=== PATIENT | male | born 1935 | race Caucasian/White ===

== ENCOUNTER 2023-07-27 09:53 | Observation (INO) ==
--- NOTE | 2023-07-27 10:38 | Emergency Department Note ---
History of Present Illness General Chief complaint: Fall Time Seen by Provider: 07/27/23 10:15 History of Present Illness 87-year-old male who presents to the emergency department via EMS for evaluation s/p fall. Patient states he was walking down the stairs in the basement when his lights turned off and he missed the last step causing him to fall. He denies hitting his head or LOC. He is not on any blood thinners. He states the majority of impact was onto his left side and he notes pain in the left shou lder. He also has some bruising to the right elbow. He states he was unable to get up on his own and had to have EMS help him. Incident occurred approximately 4 hours ago he denies feeling dizzy or lightheaded prior to his fall. He notes significant pain in the left shoulder with any movement. He states he is unable to lift the arm above his head. He denies experiencing any headaches, dizzin ess/lightheadedness, nausea/vomiting, visual changes, memory loss or confusion. Denies neck or back pain, chest pain, shortness of breath, abdominal pain. No pain in his lower extremities. He has not ambulated yet. Patient reports living with his and can usually get around without any complications. Home Medications Medication Instructions Recorded Confirmed Type diphenhydramine HCl 25 mg capsule 1 - 2 cap PO Q4 PRN Allergy 08/19/15 07/27/23 History (Benadryl) Symptoms ##0 fluticasone 250 mcg-salmeterol 50 1 inh inhalation BID 07/27/23 07/27/23 History mcg/dose blistr powdr for inhalation triamcinolone acetonide 0.1 % 1 applic topical BID 07/27/23 07/27/23 History topical ointment Allergies Allergy/AdvReac Type Severity Reaction Status Date / Time HAY FEVER Allergy Unknown Unknown Uncoded 07/27/23 13:29 Past Med/Surg History Social History (System 07/27/23 @ 12:12 by Serina Huitron) Smoking Status: Former smoker Preferred Language: Faroese Feels Safe at Home: Yes Physical Exam Vital Signs Vital Signs - 24 hr 07/27/23 09:45 Temperature 36.6 C Temperature Source Temporal Artery Scan Respiratory Rate 18 Blood Pressure 143/89 H Blood Pressure Mean 107 Pulse Oximetry 97 Oxygen Delivery Method Room Air Sepsis Recent Fever Within 48 Hours No Sepsis New/Unexplained Change in Mental Status N/A Sepsis Action Taken by Nursing No Action Required Constitutional: alert and oriented x3. no acute distress. nontoxic HEENT: normocephalic, atraumatic. No facial trauma. No scalp tenderness or hematoma. Normal conjunctiva.PERRLA. EOM's grossly intact. No florence signs or raccoon eyes. No blood within the ear canals. TMs pearly montemayor without effusion. Pharynx pink without exudate. Tonsils nonenlarged. Mucus membranes moist Neck: neck is supple, nontender. Midline C-spine nontender Respiratory: lungs are clear to auscultation without wheezes, rhonchi, or rales bilaterally. equal chest rise. normal respiratory effort, no accessory muscle use. No chest wall or rib tenderness Cardiovascular: normal heart sounds without murmur. regular rate and rhythm. GI: abdomen is soft, nontender. No palpable masses. No rebound tenderness or guarding. No CVA tenderness MSK: Tenderness over the left shoulder/humerus with limited ROM. Ecchymosis surrounding the right elbow. Full range of motion of the right upper extremity. Hips and lower extremities nontender to palpation. Peripheral vascular: Upper and lower extremities warm and well perfused with palpable pulses. Neuro: without focal neuro deficits. GCS 15. Answers questions appropriately, follows commands. CNII-XII intact. Speech clear, tongue midline, without facial droop. Strength equal throughout all for extremities. Psych:appropriate mood and affect. Medical Decision Making Differential Diagnosis Fracture, dislocation, contusion, intra-abdominal, pneumothorax, intrathoracic, intracranial, neurologic, compartment syndrome, rhabdomyolysis, as well as other pathologies. Laboratory Data Attestation: I reviewed the patient's lab results. 07/27/23 14:51 07/27/23 14:51 Lab Results 07/27/23 07/27/23 07/27/23 Range/Units 14:40 14:51 14:51 WBC 9.30 (4.8-10.8) K/ul RBC 4.41 L (4.70-6.10) M/uL Hgb 13.8 L (14.0-18.0) g/dl Hct 40.8 L (42.0-52.0) % MCV 92.5 (80.0-100.0) fL MCH 31.3 (25.0-34.0) pg MCHC 33.8 (32.0-36.0) g/dL RDW Std Deviation 48.1 H (36.4-46.3) fL RDW Coeff of Vini 14.1 (11.5-14.5) % Plt Count 292 (130-400) K/uL MPV 9.8 (9.4-12.4) fL Immature Gran % (Auto) 0.4 % Neut % (Auto) 82.2 % Lymph % (Auto) 8.6 % Nelson % (Auto) 8.2 % Eos % (Auto) 0.2 % Baso % (Auto) 0.4 % Neut # (Auto) 7.64 H (1.40-6.50) K/uL Lymph # (Auto) 0.80 L (1.20-3.40) K/uL Nelson # (Auto) 0.76 H (0.11-0.59) K/uL Eos # (Auto) 0.02 (0.00-0.50) K/uL Baso # (Auto) 0.04 (0.00-0.20) K/uL Immature Gran # (Auto) 0.04 (0.01-0.20) K/uL Sodium 136 (136-145) mmol/L Potassium 4.0 (3.5-5.1) mmol/L Chloride 107 (98-107) mmol/L Carbon Dioxide 23 (21-32) mmol/L Anion Gap 6 (3-11) BUN 15 (6-23) mg/dl Creatinine 1.04 (0.6-1.4) mg/dl Est Cr Clr Drug Dosing Not Reportable Est GFR ( Amer) 75.0 ml/min Est GFR (Non-Af Amer) 64.7 ml/min BUN/Creatinine Ratio 14.4 (10-20) Glucose 130 H (70-99(Fasting)) mg/dl Calcium 8.4 L (8.6-10.3) mg/dl SARS-CoV-2, RNA, NAAT NEGATIVE (NEGATIVE) Imaging Data My Impression: Head CT per my interpretation without acute intracranial hemorrhage or skull fr acture Cervical neck CT per my interpretation without acute fracture or subluxation Right elbow x-ray without evidence of acute fracture or dislocation per my interpretation Left shoulder, humerus, forearm x-ray per my interpretation demonstrates a subtle nondisplaced left humeral head fracture. No other fractures within the left upper extremity Radiologist's Impression: Cervical Spine CT 07/27/23 10:[address] DOSE: 1130.80 mGy.cm HISTORY: fall TECHNIQUE: Multiaxial CT images of the cervical spine were performed and refo rmatted in the sagittal and coronal plane without the use of contrast. A dose lowering technique was utilized adhering to the principles of ALARA. COMPARISON: None. FINDINGS: No fractures. No subluxation. Prevertebral soft tissues and the C1-C2 interval are intact. No pneumothorax. Posterior fusion defect at C1. Straightening of the cervical spine. 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 This results in moderate central canal narro wing at these levels. Moderate facet degenerative changes throughout the majority cervical spine. IMPRESSION: No fractures within the cervical spine. ACT 112: Negative or not required by law. Electronically signed by: Johnny Griffin M.D. 07/27/2023 11:36 AM Forearm X-Ray 07/27/23 10:31 XR forearm LT 2V CLINICAL HISTORY: fall TECHNIQUE: 2 views of the left forearm were obtained. Comparison: None available at the time of this dictation. FINDINGS: There is no evidence of acute fracture or dislocation. Degenerative changes are seen in the joints. No soft tissue abnormality is seen. IMPRESSION: No evidence of acute osseous injury. ACT 112: Negative or not required by law. Electronically signed by: Vikram Stover M.D. 07/27/2023 11:[address] 07/27/23 10:31 CT OF THE HEAD WITHOUT CONTRAST CLINICAL HISTORY: Fall. COMPARISON STUDY: No previous studies for comparison. TECHNIQUE: Helical axial images of the head were obtained without IV contrast. Automated exposure control was utilized for the study. A dose lowering technique was utilized adhering to the principles of ALARA. FINDINGS: No acute intracranial hemorrhage, midline shift or mass effect is present. The ventricular system is unremarkable. White matter hypodensity suggests small vessel disease. The basal cisterns are patent. No extra-axial collections are present. There are no findings to suggest acute dural sinus thrombosis or acute territorial infarct. No significant calvarial abnormalities are present. Visualized portions of the sinuses and mastoid air cells are clear. IMPRESSION: 1. No acute intracranial findings. 2. No acute calvarial fracture. ACT 112: Negative or not required by law. Electronically signed by: Marcin Bowles M.D. 07/27/2023 11:12 AM Humerus X-Ray 07/27/23 10:31 XR humerus LT 2V CLINICAL HISTORY: Left arm pain following fall. COMPARISON: None FINDINGS: There is no acute fracture within the left humerus. No osseous lesion is identified. Alignment of the left shoulder and left elbow is anatomic. There are moderate degenerative changes within the left shoulder. IMPRESSION: No acute fracture within the left humerus. ACT 112: Negative or not required by law. Electronically signed by: Marcin Bowles M.D. 07/27/2023 11:43 AM Elbow X-Ray 07/27/23 10:33 XR elbow RT min 3V routine CLINICAL HISTORY: Right elbow pain following fall. COMPARISON: None FINDINGS: Alignment of the right elbow is anatomic. There is no acute fracture. No evidence for a joint effusion. Minimal olecranon spurring is noted. Irregularity of the medial and lateral condyles is chronic. IMPRESSION: No acute fracture. No evidence for a right elbow joint effusion. ACT 112: Negative or not required by law. Electronically signed by: Marcin Bowles M.D. 07/27/2023 11:44 AM Shoulder X-Ray 07/27/23 11:59 XR shoulder LT min 2V routine CLINICAL HISTORY: fall COMPARISON: Left humerus radiographs performed earlier today. FINDINGS: There is subtle lucency within the inferior aspect of the left femoral head and radial neck suggestive of a acute transverse nondisplaced fracture. No additional fractures are identified. 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 No acute fractures identified within visualized portions of the left-sided ribs. IMPRESSION: Subtle acute nondisplaced transverse fracture of the left humeral head/neck junction. ACT 112: Negative or not required by law. Electronically signed by: Marcin Bowles M.D. 07/27/2023 12:23 PM MDM Narrative 87-year-old male presents to the emergency department via EMS for evaluation of left shoulder pain s/p mechanical fall. Reviewed pertinent visits and past medical history performed. Vital signs in ED stable, afebrile. Patient was seen and evaluated as above. Given mechanism of injury, head and neck CT were performed as well as x-rays of the right elbow and left upper extremity. Head and neck CTs negative for acute findings. Right elbow x-ray unremarkable. Left arm x-rays demonstrate in a acute nondisplaced transverse fracture of the left humeral head. On exam, patient is nontoxic-appearing in no acute distress. He is neurologically intact without focal deficits. GCS 15. Upper extremities are neurovascularly intact. There is no evidence to trauma to the chest wall, abdomen, or lower extremities indicating need for further imaging. He declined need for pain medication while in the ED. Case was discussed with on-call orthopedics, Dr. Milner for the humeral head fracture. He will see patient in consultation tomorrow as inpatient for further management of his fracture. He agreed with arm sling. Patient was reassessed on multiple occasions throughout ED stay. He remained stable with no new concerns. I did touch base with patient's via telephone, Marlene, and updated her on today's visit as well. There is concern with patient being able to perform daily activities as he states he has been having difficulty getting himself up from a sitting to standing position due to general weakness. is not sure if she can safely maneuver patient on her own as well especially with a now broken arm. We discussed possible admission to the hospital for PT/OT evaluation and likely placement. They were agreeable to this. Basic labs and COVID testing were performed pending admission. Labs nonactionable and COVID test negative. Case was discussed with hospitalist, RIO Nguyen who accepted patient to her service for further management and likely rehab placement. Patient was admitted in stable condition. Impression & Plan Fall down steps, Fracture of head of left humerus, Ambulatory dysfunction Discharge Plan Visit Data Chief Complaint: Fall ED Provider: Tristan Pimentel ED Midlevel Provider: Nallely Colón Discharge Problem: Fall down steps, Fracture of head of left humerus, Ambulatory dysfunction Patient Disposition: Admitted As Inpatient Condition: Good Forms Stand Alone Forms: My [facility] [employer] Prescriptions Prescriptions: No Action diphenhydramine HCl [Benadryl] 25 mg Capsule 1 - 2 cap PO Q4 PRN (Reason: Allergy Symptoms) Qty: 0 fluticasone propion-salmeterol 250-50 mcg/dose blister with device 1 inh INHALATION BID triamcinolone acetonide 0.1 % ointment 1 applic TOPICAL BID Rx Instructions: APPLY TOPICALLY TO AFFECTED AREAS ON BODY ONCE OR TWICE DAILY WEDNESDAY THRU . COVER WITH VASELINE Referrals Referrals: PCP,NO [Physician] -
--- NOTE | 2023-07-27 11:13 | CT Scan Report ---
CT OF THE HEAD WITHOUT CONTRAST CLINICAL HISTORY: Fall. COMPARISON STUDY: No previous studies for comparison. TECHNIQUE: Helical axial images of the head were obtained without IV contrast. Automated exposure con trol was utilized for the study. A dose lowering technique was utilized adhering to the principles o f ALARA. FINDINGS: No acute intracranial hemorrhage, midline shift or mass effect is present. The ventricular system is unremarkable. White matter hypodensity suggests small vessel disease. The basal cisterns ar e patent. No extra-axial collections are present. There are no findings to suggest acute dural sinus thrombosis or acute territorial infarct. No significant calvarial abnormalities are present. Visualiz ed portions of the sinuses and mastoid air cells are clear. IMPRESSION: 1. No acute intracranial findings. 2. No acute calvarial fracture. ACT 112: Negative or not required by law. Electronically signed by: Marcin Bowles M.D. 07/27/2023 11:12 AM
--- NOTE | 2023-07-27 11:37 | CT Scan Report ---
CERVICAL SPINE CT CT DOSE: 1130.80 mGy.cm HISTORY: fall TECHNIQUE: Multiaxial CT images of the cervical spine were performed and reformatted in the sagittal and coronal plane without the use of contrast. A dose lowering technique was utilized adhering to th e principles of ALARA. COMPARISON: None. FINDINGS: No fractures. No subluxation. Prevertebral soft tissues and the C1-C2 interval are intact. No pneumothorax. Posterior fusion defect at C1. Straightening of the cervical spine. Mild to moderate degenerative disc disease within the lower cervical spine. There is ossification of the posterior lo ngitudinal ligament at C5 and C6. This results in moderate central canal narrowing at these levels. M oderate facet degenerative changes throughout the majority cervical spine. IMPRESSION: No fractures within the cervical spine. ACT 112: Negative or not required by law. Electronically signed by: Johnny Griffin M.D. 07/27/2023 11:36 AM
--- NOTE | 2023-07-27 11:44 | XRay Report ---
XR humerus LT 2V CLINICAL HISTORY: Left arm pain following fall. COMPARISON: None FINDINGS: There is no acute fracture within the left humerus. No osseous lesion is identified. Align ment of the left shoulder and left elbow is anatomic. There are moderate degenerative changes within the left shoulder. IMPRESSION: No acute fracture within the left humerus. ACT 112: Negative or not required by law. Electronically signed by: Marcin Bowles M.D. 07/27/2023 11:43 AM
--- NOTE | 2023-07-27 11:46 | XRay Report ---
XR elbow RT min 3V routine CLINICAL HISTORY: Right elbow pain following fall. COMPARISON: None FINDINGS: Alignment of the right elbow is anatomic. There is no acute fracture. No evidence for a curly int effusion. Minimal olecranon spurring is noted. Irregularity of the medial and lateral condyles is chronic. IMPRESSION: No acute fracture. No evidence for a right elbow joint effusion. ACT 112: Negative or not required by law. Electronically signed by: Marcin Bowles M.D. 07/27/2023 11:44 AM
--- NOTE | 2023-07-27 11:56 | XRay Report ---
XR forearm LT 2V CLINICAL HISTORY: fall TECHNIQUE: 2 views of the left forearm were obtained. Comparison: None available at the time of this dictation. FINDINGS: There is no evidence of acute fracture or dislocation. Degenerative changes are seen in the joints. N o soft tissue abnormality is seen. IMPRESSION: No evidence of acute osseous injury. ACT 112: Negative or not required by law. Electronically signed by: Vikram Stover M.D. 07/27/2023 11:55 AM
--- NOTE | 2023-07-27 12:24 | XRay Report ---
XR shoulder LT min 2V routine CLINICAL HISTORY: fall COMPARISON: Left humerus radiographs performed earlier today. FINDINGS: There is subtle lucency within the inferior aspect of the left femoral head and radial nec k suggestive of a acute transverse nondisplaced fracture. No additional fractures are identified. The re is moderate osteoarthritis of the left acromioclavicular and glenohumeral joints. No acute fractur es identified within visualized portions of the left-sided ribs. IMPRESSION: Subtle acute nondisplaced transverse fracture of the left humeral head/neck junction. ACT 112: Negative or not required by law. Electronically signed by: Marcin Bowles M.D. 07/27/2023 12:23 PM
--- NOTE | 2023-07-27 13:32 | Emergency Department Note ---
ED Visit Note I was consulted by the Advanced Practice Provider, Nallely Colón PA-C. I saw the patient personally and performed a substantive portion of the visit. This includes aspects of the HPI, MDM, diagnostic interpretations, and disposition/plan. .
[2023-07-27 15:11] LABS: Basophils # (auto) 0.04 K/uL (0.00-0.20); Basophils % (auto) 0.4 %; Eosinophils # (auto) 0.02 K/uL (0.00-0.50); Eosinophils % (auto) 0.2 %; Hematocrit (blood only) 40.8 % (42.0-52.0); Hemoglobin 13.8 g/dl (14.0-18.0); Immature Granulocytes # (auto) 0.04 K/uL (0.01-0.20); Immature Granulocytes % (auto) 0.4 %; Lymphocytes % (auto) 8.6 %; Mean Corpuscular Hemoglobin 31.3 pg (25.0-34.0); Mean Corpuscular Hgb Conc 33.8 g/dL (32.0-36.0); Mean Corpuscular Volume 92.5 fL (80.0-100.0); Mean Platelet Volume 9.8 fL (9.4-12.4); Monocytes # (auto) 0.76 K/uL (0.11-0.59); Monocytes % (auto) 8.2 %; Neutrophils # (auto) 7.64 K/uL (1.40-6.50); Neutrophils % (auto) 82.2 %; Platelet Count 292 K/uL (130-400); RDW Coefficient of Variation 14.1 % (11.5-14.5); RDW Standard Deviation 48.1 fL (36.4-46.3); Red Blood Count 4.41 M/uL (4.70-6.10)
[2023-07-27 15:23] LABS: Anion Gap 6 (3-11); BUN Creatinine Ratio 14.4 (10-20); Blood Urea Nitrogen 15 mg/dl (6-23); Calcium 8.4 mg/dl (8.6-10.3); Carbon Dioxide 23 mmol/L (21-32); Chloride 107 mmol/L (98-107); Est GFR (Non-African American) 64.7 ml/min; Glucose 130 mg/dl (70-99(Fasting)); Sodium 136 mmol/L (136-145)
--- NOTE | 2023-07-27 17:08 | History & Physical Report ---
Date of Service July 27, 2023 Assessment & Plan (1) Fracture of head of left humerus: (2) Ambulatory dysfunction: (3) Fall down steps: Plan: Admit to [facility] Patient presenting from home after mechanical fall and left arm pain. In the ED, found to have subtle acute nondisplaced transverse fracture of the left humeral head/neck junction. Labs unremarkable Patient accepted to [facility], initially declined transfer, now willing to go however it is now too late in the day for transfer. Plan on transfer to [facility] tomorrow. Pain control Ortho consult (4) Asthma: Plan: Stable, chronic, no signs of acute exacerbation Continue home inhaler DVT PROPHYLAXIS SQ Lovenox Patient seen in collaboration with Dr. Carrillo. I spent a total of 75 minutes coordinating, documenting, and providing care for this patient excluding time spent in the performance of separately billed services. This included personally reviewing all current laboratories and imaging studies, medication reconciliation, outpatient chart review, and discussion with specialists. History of Present Illness Chief Complaint: Fall, left arm pain Primary Care Provider: Pepito Arevalo MD 87-year-old male with PMH asthma, eczema, and other problems to below who presents to the ED for evaluation after a fall and left arm pain. History is obtained from the patient and review of outpatient PCP records. Patient states that he was going down a couple of steps, the light had turned off, and he slipped falling onto his left side. Patient denies striking his head or loss of consciousness. Denies any preceding chest pain, shortness of breath, lightheadedness, dizziness, diaphoresis. EMS was called and patient was brought to the ED for further evaluation. Patient reports he otherwise has been feeling well recently. States that he feels generally weak at times and has difficulty standing up from the toilet. No other recent illnesses, fevers, chills. He denies abdominal pain, nausea, vomiting, diarrhea. No urinary symptoms. In the ED, patient was found to have subtle acute nondisplaced transverse fracture of the left humeral head/neck junction. Labs unremarkable. Patient was accepted to [facility] however he is declining transfer tonight. Allergies Allergy/AdvReac Type Severity Reaction Status Date / Time HAY FEVER Allergy Unknown Unknown Uncoded 07/27/23 13:29 Home Medications Medication Instructions Recorded Confirmed Type diphenhydramine HCl 25 mg capsule 1 - 2 cap PO Q4 PRN Allergy 08/19/15 07/27/23 History (Benadryl) Symptoms ##0 fluticasone 250 mcg-salmeterol 50 1 inh inhalation BID 07/27/23 07/27/23 History mcg/dose blistr powdr for inhalation triamcinolone acetonide 0.1 % 1 applic topical BID 07/27/23 07/27/23 History topical ointment Past Med/Surg History Medical History Asthma Eczema Surgical History History of cataract surgery Social History (System 07/27/23 @ 12:12 by Serina Huitron) Smoking Status: Former smoker Preferred Language: Kinyarwanda Feels Safe at Home: Yes Review of Systems Review of Systems: ROS per HPI, all other systems reviewed and negative Physical Exam Physical Exam: Please refer to Dr. Carrillo's addendum for physical exam Results & Data Results & Data Vital Signs (Past 12 Hours) Vital Signs Temp Pulse Resp BP BP Pulse Ox O2 Del Method 07/27/23 16:35 92 H 16 109/86 96 Room Air 07/27/23 09:45 36.6 C 18 143/89 H 97 Room Air Laboratory Results Short CBC 07/27/23 Range/Units 14:51 WBC 9.30 (4.8-10.8) K/ul Hgb 13.8 L (14.0-18.0) g/dl Hct 40.8 L (42.0-52.0) % Plt Count 292 (130-400) K/uL BMP 07/27/23 14:51 Sodium 136 Potassium 4.0 Chloride 107 Carbon Dioxide 23 BUN 15 Creatinine 1.04 Glucose 130 H Calcium 8.4 L Diagnostic Findings Cervical Spine CT 07/27/23 10:[address] DOSE: 1130.80 mGy.cm HISTORY: fall TECHNIQUE: Multiaxial CT images of the cervical spine were performed and reformatted in the sagittal and coronal plane without the use of contrast. A dose lowering technique was utilized adhering to the principles of ALARA. COMPARISON: None. FINDINGS: No fractures. No subluxation. Prevertebral soft tissues and the C1-C2 interval are intact. No pneumothorax. Posterior fusion defect at C1. Straightening of the cervical spine. 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 This results in moderate central canal narrowing at these levels. Moderate facet degenerative changes throughout the majority cervical spine. IMPRESSION: No fractures within the cervical spine. ACT 112: Negative or not required by law. Electronically signed by: Johnny Griffin M.D. 07/27/2023 11:36 AM Forearm X-Ray 07/27/23 10:31 XR forearm LT 2V CLINICAL HISTORY: fall TECHNIQUE: 2 views of the left forearm were obtained. Comparison: None available at the time of this dictation. FINDINGS: There is no evidence of acute fracture or dislocation. Degenerative changes are seen in the joints. No soft tissue abnormality is seen. IMPRESSION: No evidence of acute osseous injury. ACT 112: Negative or not required by law. Electronically signed by: Vikram Stover M.D. 07/27/2023 11:[address] 07/27/23 10:31 CT OF THE HEAD WITHOUT CONTRAST CLINICAL HISTORY: Fall. COMPARISON STUDY: No previous studies for comparison. TECHNIQUE: Helical axial images of the head were obtained without IV contrast. Automated exposure control was utilized for the study. A dose lowering technique was utilized adhering to the principles of ALARA. FINDINGS: No acute intracranial hemorrhage, midline shift or mass effect is present. The ventricular system is unremarkable. White matter hypodensity suggests small vessel disease. The basal cisterns are patent. No extra-axial collections are present. There are no findings to suggest acute dural sinus thrombosis or acute territorial infarct. No significant calvarial abnormalities are present. Visualized portions of the sinuses and mastoid air cells are clear. IMPRESSION: 1. No acute intracranial findings. 2. No acute calvarial fracture. ACT 112: Negative or not required by law. Electronically signed by: Marcin Bowles M.D. 07/27/2023 11:12 AM Humerus X-Ray 07/27/23 10:31 XR humerus LT 2V CLINICAL HISTORY: Left arm pain following fall. COMPARISON: None FINDINGS: There is no acute fracture within the left humerus. No osseous lesion is identified. Alignment of the left shoulder and left elbow is anatomic. There are moderate degenerative changes within the left shoulder. IMPRESSION: No acute fracture within the left humerus. ACT 112: Negative or not required by law. Electronically signed by: Marcin Bowles M.D. 07/27/2023 11:43 AM Elbow X-Ray 07/27/23 10:33 XR elbow RT min 3V routine CLINICAL HISTORY: Right elbow pain following fall. COMPARISON: None FINDINGS: Alignment of the right elbow is anatomic. There is no acute fracture. No evidence for a joint effusion. Minimal olecranon spurring is noted. Irregularity of the medial and lateral condyles is chronic. IMPRESSION: No acute fracture. No evidence for a right elbow joint effusion. ACT 112: Negative or not required by law. Electronically signed by: Marcin Bowles M.D. 07/27/2023 11:44 AM Shoulder X-Ray 07/27/23 11:59 XR shoulder LT min 2V routine CLINICAL HISTORY: fall COMPARISON: Left humerus radiographs performed earlier today. FINDINGS: There is subtle lucency within the inferior aspect of the left femoral head and radial neck suggestive of a acute transverse nondisplaced fracture. No additional fractures are identified. 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 No acute fractures identified within visualized portions of the left-sided ribs. IMPRESSION: Subtle acute nondisplaced transverse fracture of the left humeral head/neck junction. ACT 112: Negative or not required by law. Electronically signed by: Marcin Bowles M.D. 07/27/2023 12:23 PM Code Status & VTE Plan VTE Prophylaxis Plan VTE Prophylaxis will be ordered: Yes Supervising Physician Co-Signing Physician Notes Pt is a 87 y/o M with hx of asthma, eczema admitted for fall complicated with L humeral head and neck fracture PE: NAD, well developed Lungs: CTA, no wheezing or crackles Cardiac: normal S1/S2, no murmur Abd: ND, soft, NT MSK: wearing L arm sling, ttp of the L anterior shoulder with decreased ROM, normal ROM of the L wrist and elbow with intact strength Psych: AAOx3, normal affect A/P: Fall complicated with L humeral fracture: -ER team was able to get pt into the [facility] rehab but pt does not want to go to the rehab -CT head and C spine: no acute fracture -will get ortho and PT eval - likely rehab placement tomorrow (if pt agree) - prn pain management Agree with A/P by RIO Nguyen
[2023-07-27] MEDS ORDERED: ACETAMINOPHEN 325 MG TAB PO PRN (18:27)
[2023-07-27] MEDS ORDERED: Patient's HEIGHT &/or WEIGHT Needed SCH (20:00)
[2023-07-27] MEDS ORDERED: FLUTICASONE/VILANTEROL 200/25MCG 14 PUFFS/INHALER INH SCH (21:00)
[2023-07-27] MEDS ORDERED: ENOXAPARIN INJ 40 MG/0.4 ML SYR SQ SCH (22:00)
[2023-07-28] MEDS ORDERED: PROMETHAZINE HCL 6.25 MG in SODIUM CHLORIDE 0.9% 50 ML IV PRN (04:36)
--- NOTE | 2023-07-28 09:02 | Orthopedic Consultation ---
Date of Service July 28, 2023 Assessment & Plan (1) Fracture of head of left humerus: He was educated on this injury. He has a nondisplaced proximal humerus fracture that can be treated nonoperatively. He should continue use of the sling. No shoulder range of motion at this time. He can come out of the sling for elbow range of motion. He is okay to discharge from orthopedic standpoint to [facility] for rehab and should follow up with Dr. Milner in approximately 1 month. He was seen and examined by Dr. Milner today as well. History of Present Illness Reason for Consultation: . Requesting Physician: . Attending Physician: Hari Bravo MD .87 year old left hand dominant patient injured his left shoulder yesterday. He was walking down a flight of 4 stairs at home yesterday when the light bulb went out and he couldn't see, causing him to fall. He complains mostly of left shoulder pain, some right elbow pain/bruising. No other orthopedic complaints. He is awaiting discharge to [facility]. Allergies Allergy/AdvReac Type Severity Reaction Status Date / Time HAY FEVER Allergy Unknown Unknown Uncoded 07/27/23 13:29 Home Medications Medication Instructions Recorded Confirmed Type diphenhydramine HCl 25 mg capsule 1 - 2 cap PO Q4 PRN Allergy 08/19/15 07/27/23 History (Benadryl) Symptoms ##0 fluticasone 250 mcg-salmeterol 50 1 inh inhalation BID 07/27/23 07/27/23 History mcg/dose blistr powdr for inhalation triamcinolone acetonide 0.1 % 1 applic topical BID 07/27/23 07/27/23 History topical ointment Past Med/Surg History Medical History Asthma Eczema Surgical History History of cataract surgery Social History Smoking Status: Never smoker Hx Alcohol Use: No Hx Substance Use: No Preferred Language: Divehi Communication Ability: Effective Amphibian Crewmember Required: No Beliefs That Will Affect Care: None Current Living Situation: Spouse Other Information That Helps Us Care for You: No Feels Safe at Home: Yes Safety Concerns: Feels Safe At This Time Assistive Devices: Denture - Upper and Denture - Lower Review of Systems All systems reviewed & are unremarkable except as noted in HPI & below. Physical Exam . alert and oriented. NAD Right arm: ecchymosis around the elbow and forearm. Good elbow range of motion. No effusion. Left arm: Ecchymosis around the upper arm/shoulder. Tender to palpation at the shoulder. No motion of the shoulder at this time. Able to flex/extend his wrist. NVI. Results & Data Results & Data Laboratory Results . Diagnostic Findings .xrays of the right elbow shows some degenerative/chronic changes but no fracture. Left shoulder xrays show a nondisplaced proximal humerus fracture. PG Care Time/CCT Total # of Minutes Spent Total Time Spent with Patient: Total time spent is greater than 50% in coordination of care (as documented) at patient's floor/unit and/or counseling patient: Coding Level of Care Code 75396 IN/OBS CONSULT LVL 3,45M Diagnoses Fracture of head of left humerus S42.292A
--- NOTE | 2023-07-28 11:55 | Discharge Summary ---
Date of Service July 28, 2023 Admission HPI Per Admitting Provider 87-year-old male with PMH asthma, eczema, and other problems to below who presents to the ED for evaluation after a fall and left arm pain. History is obtained from the patient and review of outpatient PCP records. Patient states that he was going down a couple of steps, the light had turned off, and he slipped falling onto his left side. Patient denies striking his head or loss of consciousness. Denies any preceding chest pain, shortness of breath, lightheadedness, dizziness, diaphoresis. EMS was called and patient was brought to the ED for further evaluation. Patient reports he otherwise has been feeling well recently. States that he feels generally weak at times and has difficulty standing up from the toilet. No other recent illnesses, fevers, chills. He denies abdominal pain, nausea, vomiting, diarrhea. No urinary symptoms. In the ED, patient was found to have subtle acute nondisplaced transverse fracture of the left humeral head/neck junction. Labs unremarkable. [facility] however he is declining transfer tonight. Admission Exam Per Admitting Provider NAD, well developed Lungs: CTA, no wheezing or crackles Cardiac: normal S1/S2, no murmur Abd: ND, soft, NT MSK: wearing L arm sling, ttp of the L anterior shoulder with decreased ROM, normal ROM of the L wrist and elbow with intact strength Psych: AAOx3, normal affect Principal Diagnosis Left humerus fracture Discharge Exam General: elderly M in NAD, well developed Lungs: CTA, no wheezing or crackles Cardiac: normal S1/S2, no murmur Abd: ND, soft, NT MSK: wearing L arm sling, ttp of the L anterior shoulder, normal ROM of the L wrist and elbow with intact strength Psych: AAOx3, normal affect Discharge Data Allergies Allergy/AdvReac Type Severity Reaction Status Date / Time HAY FEVER Allergy Unknown Unknown Uncoded 07/27/23 13:29 Consultations 07/27/23 18:27 Consult Orthopedic Surgery Routine Ordered Studies 07/27/23 10:31 CT head/brain wo con Stat FINDINGS: No acute intracranial hemorrhage, midline shift or mass effect is present. The ventricular system is unremarkable. White matter hypodensity suggests small vessel disease. The basal cisterns are patent. No extra-axial collections are present. There are no findings to suggest acute dural sinus thrombosis or acute territorial infarct. No significant calvarial abnormalities are present. Visualized portions of the sinuses and mastoid air cells are clear. IMPRESSION: 1. No acute intracranial findings. 2. No acute calvarial fracture. CT neck [CT cervical spine wo con] Stat FINDINGS: No fractures. No subluxation. Prevertebral soft tissues and the C1-C2 interval are intact. No pneumothorax. Posterior fusion defect at C1. Straightening of the cervical spine. 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 This results in moderate central canal narrowing at these levels. Moderate facet degenerative changes throughout the majority cervical spine. IMPRESSION: No fractures within the cervical spine. Hospital Course (1) Fracture of head of left humerus: (2) Ambulatory dysfunction: (3) Fall down steps: Patient presenting from home after mechanical fall and left arm pain. In the ED, found to have subtle acute nondisplaced transverse fracture of the left humeral head/neck junction. Labs unremarkable Patient accepted to [facility] Pain control - pt denies any shoulder pain Ortho consulted - nondisplaced proximal humerus fracture that can be treated nonoperatively. He should continue use of the sling. No shoulder range of motion at this time. He can come out of the sling for elbow range of motion. He is okay to discharge from orthopedic standpoint to [facility] for rehab and should follow up with Dr. Milner in approximately 1 month. By CMS guidelines, a determination that the admission or continued stay is not medically necessary has been made by a member of the UR committee and a physician for this hospital stay, therefore a Code 44 will be completed and the Inpatient admission will be changed to outpatient. (4) Asthma: Stable, chronic, no signs of acute exacerbation Continue home inhaler Total Time Total Time Spent Total Time Spent (In Minutes): 40 Discharge Plan Discharge Items Patient Disposition: Transfer Inpatient Rehab Fac Reason For Visit: LEFT HUMERUS FRACTURE Discharge Diagnosis: Left humerus fracture Condition on Discharge: Good Activity: Per Instructions section Non-emergency contact: Primary Care Provider and Surgeon Call non-emergency contact if: you have any medication questions and your symptoms worsen Follow-up/Referrals: Pepito Arevalo MD [Primary Care Provider] - Diet: Regular Addtl Attending Provider Instructions: Follow-up with primary care physician and orthopedic surgeon. You should see primary care physician within 1 week. It is recommended that you follow-up with orthopedic surgeon, Dr. Milner, within 1 month. Sling was provided for you. No shoulder range of motion at this time. You can come out of the sling for elbow range of motion. Pending Studies at Discharge: No Stand-Alone Forms: My [facility] Skilled Items Patient informed of condition?: Yes DNR: No Discharge Level of Care: Acute rehab Communicable Disease: No Discharge Prognosis: Stable Lines: None Urinary Catheter: No Medications and DC Order Prescriptions: New acetaminophen 325 mg Tablet 650 mg PO Q4H PRN (Reason: pain) Qty: 20 0RF Continued diphenhydramine HCl [Benadryl] 25 mg Capsule 1 - 2 cap PO Q4 PRN (Reason: Allergy Symptoms) Qty: 0 fluticasone propion-salmeterol 250-50 mcg/dose blister with device 1 inh INHALATION BID triamcinolone acetonide 0.1 % ointment 1 applic TOPICAL BID Rx Instructions: APPLY TOPICALLY TO AFFECTED AREAS ON BODY ONCE OR TWICE DAILY WEDNESDAY THRU WEDNESDAY. COVER WITH VASELINE Discharge Orders: Discharge Order (Routine); Ordered 07/28/23 Ordered By: Hari Bravo Admission Data Admit Date/Time: 07/27/23 16:19 Attending Provider: Hari Bravo Admit Provider: Heather Carrillo Primary Care Provider: Pepito Arevalo [facility] ; Bear Milner ; Heather Carrillo
--- NOTE | 2023-07-29 19:37 | Communication Note ---
Date of Service: July 28, 2023 Over 44 attestation: The chart of the patient, medications and progress note reviewed. The management was appropriate and was discharged appropriately by the attending physician. By CMS guidelines, a determination that the admission or continued stay is not medically necessary has been made by a member of the UR committee and a physician for this hospital stay, therefore a Code 44 will be completed and the Inpatient admission will be changed to outpatient. Dr. Judi Herrera Member UR Committee
--- OUTSIDE RECORDS SUMMARY | 2023-08-10 05:22 | External Medical Summary | Summary of Care ---
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 Name Role Phone Pepito Arevalo MD Primary Care Provider [phone] Reason for Visit * Reason Comments Re-Check Medication Administration Flu and/or Pne umo Inj Encounter Details Date Type Department Care Team Description 07/11/2020 Office Visit Internal Medicine [address] [id number] Pepito Arevalo MD [address] [place] [id number] Mild persistent asthma without complication*; Need for prophylactic vaccination and inoculation against influenza; Seasonal allergic rhinitis due to pollen Allergies Active Allergy Reactions Severity Noted Date Comments Environmental 09/03/2005 documented as of this encounter (statuses as of 07/11/2020) Medications Medication Sig Dispensed Refills Start Date End Date Status BENADRYL 25 MG PO CAPS 1 or 2 pills by mouth 4 times a day as needed for itching or allergies 50 Cap 1 06/27/2013 Active triamcinolone acetonide (ARISTOCORT) 0.1 % ointment Apply topically to affected area. As directed 4 03/11/2015 Active Cetirizine HCl (ZYRTEC ALLERGY) 10 MG CapsuleIndications :Allergic dermatitis Take 1 Cap by mouth daily. 30 Cap 5 12/23/2018 Active fluticasone-salmet alphonso (ADVAIR DISKUS) 250-50 MCG/DOSE inhalerIndications :Mild persistent asthma without complication Inhale 1 Puff by mouth 2 times a day. Rinse mouth daily. 14 Each 3 07/11/2020 Active fluticasone-salmet alphonso (ADVAIR DISKUS) 250-50 MCG/DOSE inhalerIndications :Mild persistent asthma without complication Inhale 1 Puff by mouth 2 times a day. Rinse mouth daily. 1 Disk Dosing Unit 5 07/11/2019 0 Discontinue d(Refill) documented as of this encounter (statuses as of 07/11/2020) Active Problems Problem Noted Date Mild persistent asthma without complicat ion 02/26/2016 Seasonal allergic rhinitis due to pollen 09/07/2012 ADVANCE DIRECTIVE INFORMATION 09/03/2005 Overview: No, Advance Directive brochure offered , patient declined. Intrinsic eczema documented as of this encounter (statuses as of 07/11/2020) Resolved Problems Problem Noted Date Resolved Date Senile cataract of left eye 09/10/201506/2016 NO KNOWN PROBLEMS 07/05/2009 09/07/2012 documented as of this encounter (statuses as of 07/11/2020) Immunizations Name Administration Dates Next Due Pneumococcal Conjugate Vacc, 13 Valent (Prevnar) 07/09/2016 Pneumococcal Polysaccharide PPV23 (Pneumovax) 09/07/2012 Seasonal Influenza, Quadriva lent, No Preserve, 6 Mons & Above, IM 07/11/2019,07/11/2018 Seasonal Influenza, Quadriva lent, No Preserve, Adjuvanted, 65+ Yrs, IM 07/11/2020 Seasonal Influenza, Quadriva lent, No Preserve, IM 07/09/2017,07/09/2016 Seasonal Influenza, Trivalen t, with Preserve, 3yr & Above, Split 07/11/2015,07/14/2014,07/27/2013,08/02,08/05/2011,08/05/2010,08/08/2009 Varicella Zoster Vaccine (Adult) 10/15/2012 documented as of this encounter Social History Tobacco Use Types Packs/Day Years Used Date Former Smoker Cigarettes 0.5 25 Quit: 11/01 Smokeless Tobacco: Never Used Tobacco Cessation:Counseling Given: No Alcohol Use Drinks/Week oz/Week Comments Yes several martini s a day. Cut way back May 2013 Food Insecurity Answer Date Recorded Within the past 12 months, y ou worried that your food would run out before you got money to buy more. Never true Within the past 12 months, t he food you bought just didn't last and you didn't have money to get more. Never true Sex Assigned at Date Recorded Not on file Job Start Date Occupation Industry Not on file Not on file Not on file Travel History Travel Start Travel End documented as of this encounter Last Filed Vital Signs Vital Sign Reading Time Taken Comments Blood Pressure 130/78 07/11/2020 8:11 AM EDT Pulse 106 07/11/2020 8:11 AM EDT Temperature 37 C (98.6 F) 07/11/2020 8:11 AM EDT Respiratory Rate 16 07/11/2020 8:11 AM EDT Oxygen Saturation 97% 07/11/2020 8:11 AM EDT Inhaled Oxygen Concentration - - Weight 73.4 kg (161 lb 12.8 oz) 07/11/2020 8:11 AM EDT Height 177.8 cm (5' 10") 07/11/2020 8:11 AM EDT Body Mass Index 23.22 07/11/2020 8:11 AM EDT documented in this encounter Progress Notes * Pepito Arevalo MD - 07/11/2020 8:16 AM EDT He gets a lot of secretions in the evening watching TV but it does not help much with that. He feels good otherwise, not interested in labs or the shingles shot. He was coating his deck the other dayand got bruised up. Denies nausea, vomiting, or diarrhea. Denies fevers, chills or sweats. He had lost a little weight but now it is stable. Health Maintenance addressed. Flu shot today. 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 Past Surgical History: Procedure Laterality Date MOHS, 1ST STAGE; FACE, HANDS, FEET, NERVE 05/21/08 BCC face, Dr Neville REMOVAL OF TONSILS, AGE 12+ REMOVE CATARACT, INSERT LENS PROSTH Left 09/24/15 SPIROMETRY B/A BRONCHODILATOR 08/25/13 moderate obstructive airways disease, with improvement after bronchodilator Review of patient's allergies indicates: Allergen Reactions Environmental Social History Socioeconomic History Marital status: Spouse name: Not on file Number of children: 1 Years of education: Not on file Highest education level: Not on file Occupational History Employer: [employer] Social Needs Financial resource strain: Not on file Food insecurity: Worry: Never true Inability: Never true Transportation needs: Medical: Not on file Non-medical: Not on file Tobacco Use Smoking status: Former Smoker Packs/day: 0.50 Years: 25.00 Pack years: 12.50 Types: Cigarettes Last attempt to quit: 11/01/2000 Years since quittin.7 Smokeless tobacco: Never Used Substance and Sexual Activity Alcohol use: Yes Comment: several martinis a day. Cut way back May 2013 Drug use: No Sexual activity: Yes Partners: Female Lifestyle Physical activity: Days per week: Not on file Minutes per session: Not on file Stress: Not on file Relationships Social connections: Talks on phone: Not on file Gets together: Not on file Attends anglican service: Not on file Active member of club or organization: Not on file Attends meetings of clubs or organizations: Not on file Relationship status: Not on file Intimate partner violence: Fear of current or ex partner: Not on file Emotionally abused: Not on file Physically abused: Not on file Forced sexual activity: Not on file Other Topics Concern Not on file Social History Narrative Not on file Vaping/E-Cigarette Use Vaping/E-Cigarette Substances Vaping/E-Cigarette Devices Current Outpatient Medications Medication Sig Dispense Refill fluticasone-salmeterol (ADVAIR DISKUS) 250-50 MCG/DOSE inhaler Inhale 1 Puff by mouth 2 times aday. Rinse mouth daily. 14 Each 3 Cetirizine HCl (ZYRTEC ALLERGY) 10 MG Capsule Take 1 Cap by mouth daily. 30 Cap 5 triamcinolone acetonide (ARISTOCORT) 0.1 % ointment Apply topically to affected area. As directed 4 BENADRYL 25 MG PO CAPS 1 or 2 pills by mouth 4 times a day as needed for itching or allergies 50 Cap 1 O: Blood pressure 130/78, pulse 106, temperature 37 C (98.6 F), temperature source Tympanic, resp. rate 16, height 1.778 m (5' 10"), weight 73.4 kg (161 lb 12.8 oz), SpO2 97 %. General appearance: well developed, well nourished and in no acute distress. Neck is supple withoutadenopathy or thyromegaly. Chest is symmetrical and moves normally. The lungs are clear without wheezes, rales, rhonchi or rubs, and the heart is regular without murmurs or gallops, or ectopy. PMI not displaced. He has a number of bruises on his forearms. A: Mild persistent asthma without complication (Primary) - fluticasone-salmeterol (ADVAIR DISKUS) 250-50 MCG/DOSE inhaler; Inhale 1 Puff by mouth 2 times a day. Rinse mouth daily. Need for prophylactic vaccination and inoculation against influenza - INFLUENZA VACC, QUAD, PF, ADJUVANTED, 65+ YRS, IM Seasonal allergic rhinitis due to pollen Follow Up: Return in about 1 year (around 07/11/2021) for Clinic Visit. | For: Clinic Visit * Rachel Woods LPN - 07/11/2020 8:10 AM EDT PRE - ADMINISTRATION DOCUMENTATION Are you allergic to latex? No Are you experiencing any cold symptoms or fever? No Have you had Guillain-Norcross Syndrome (an illness that causes paralysis) within the last 6 weeks? No Have you had the flu shot in the past? YES Have you ever had a reaction to the flu shot? No Rachel Woods LPN, 07/11/2020 8:10 AM Immunization Administration Documentation Time Out Procedure Performed: Yes Patient Identified (Ask Name/Date of ): Yes Does the patient have a fever greater than 101 degrees today? No Patient allergic to latex? No VFC Stock: No Immunization(s) verified: Yes, Immunization Name: Flu, VIS Sheet(s) given: Yes Verified Side and Site: Yes Verified Shot(s) with Parent(s)/Patient: Yes documented in this encounter Nursing Notes * Rachel Woods LPN - 07/11/2020 8:08 AM EDT Pt here for yearly check up No concerns noted Patient has been verbally educated on the need or importance of Immunizations: shingles Depression Screening: Feel SAD, down, depressed, hopeless, or irritable: No Trouble with SLEEP: falling or staying asleep, sleeping too much: No Lost INTEREST in your job, hobbies, or usual pleasures: No Feel GUILTY, down on yourself or that you've let others down: No Tired or have low ENERGY: No Difficulty CONCENTRATING, remembering or making decisions: No Poor APPETITE, or overeating: No PHYSICAL changes - fidgety, restless or more slowed down than usual: No Ever feel that life isn't worth living, feel like hurting yourself, or SUICIDAL: No documented in this encounter Plan of Treatment Upcoming Encounters Date Type Specialty Care Team Description 07/15/2021 Office Visit Internal Medicine Pepito Arevalo MD [address] [place] [address] [place] [address] Health Maintenance Due Date Last Done Comments DTaP,Tdap,and Td Vaccines (1 - Tdap) 1946 Zoster Vaccines (2 of 3) 12/10/2012 10/15/2012 *DEPRESSION SCREENING,ANNUAL FOR PTS 12 AND OVER 07/14/2019 Influenza Vaccine (FLU shot) (#1) 2020 07/11/2019, 07/11/2018, 07/09/2017, Additional history exists *SPIROMETRY ONCE FOR ASTHMA-ADULT 07/04/2020 DIABETES SCREEN EVERY 3 YRS-AGE 45 AND ABOVE 02/28/2022 02/28/2019, 05/30/2013 Pneumococcal Vaccine: 65+ Years Completed 07/09/2016, 09/07/2012 MENINGOCOCCAL (MENACTRA/MENVEO) Aged Out No longer eligible based on patient's age to complete this topic documented as of this encounter Implants Not on filedocumented as of this encounter Visit Diagnoses Diagnosis Mild persistent asthma without complication- Primary Unspecified asthma Need for prophylactic vaccination and inoculation against influenza Seasonal allergic rhinitis due to pollen documented in this encounter Advance Directives Documents on File Type Date Recorded 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
--- OUTSIDE RECORDS SUMMARY | 2023-08-10 05:22 | External Medical Summary | Summary of Care ---
Author Name Unknown Organization [place] [address] Care Team Providers Care Physics Teacher Name Role Phone Pepito Arevalo MD Primary Care Provider [phone] Reason for Visit * Reason Comments Health Maintenance Encounter Details Date Type Department Care Team Description 07/15/2020 Telephone Internal Medicine [address] [address] Pepito Arevalo MD [address] [place] [address] [place] [address] Health Maintenance Allergies Active Allergy Reactions Severity Noted Date Comments Environmental 09/03/2005 documented as of this encounter (statuses as of 07/15/2020) Medications Medication Sig Dispensed Refills Start Date End Date Status BENADRYL 25 MG PO CAPS 1 or 2 pills by mouth 4 times a day as needed for itching or allergies 50 Cap 1 06/27/2013 Active triamcinolone acetonide (ARISTOCORT) 0.1 % ointment Apply topically to affected area. As directed 4 03/11/2015 Active Cetirizine HCl (ZYRTEC ALLERGY) 10 MG CapsuleIndications:All ergic dermatitis Take 1 Cap by mouth daily. 30 Cap 5 12/23/2018 Active fluticasone-salmeterol (ADVAIR DISKUS) 250-50 MCG/DOSE inhalerIndications:Mil d persistent asthma without complication Inhale 1 Puff by mouth 2 times a day. Rinse mouth daily. 14 Each 3 07/11/2020 Active documented as of this encounter (statuses as of 07/15/2020) Active Problems Problem Noted Date Mild persistent asthma without complicat ion 02/26/2016 Seasonal allergic rhinitis due to pollen 09/07/2012 ADVANCE DIRECTIVE INFORMATION 09/03/2005 Overview: No, Advance Directive brochure offered , patient declined. Intrinsic eczema documented as of this encounter (statuses as of 07/15/2020) Resolved Problems Problem Noted Date Resolved Date Senile cataract of left eye 09/10/2015 09/0 06/2016 NO KNOWN PROBLEMS 07/05/2009 09/07/2012 documented as of this encounter (statuses as of 07/15/2020) Immunizations Name Administration Dates Next Due Pneumococcal [...] 26 Quit: 11/01 Smokeless Tobacco: Never Used Alcohol Use Drinks/Week oz/Week Comments Yes several [...] Travel End documented as of this encounter Miscellaneous Notes * Telephone Encounter - Radha May LPN - 07/15/2020 3:04 PM EDT Patient contacted for Care Gaps Comprehensive Care Outreach. Last Office/Telemedicine Visit: 07/11/2020 Next Office Visit: 07/15/2021 Scheduled Provider(s): Pepito Arevalo MD Health Maintenance Topic Date Due DTaP,Tdap,and Td Vaccines (1 - Tdap) 1946 Zoster Vaccines (2 of 3) 12/10/2012 Outreach action taken: AWV Contacted: Left message. with to have pt return call documented in this encounter Plan of Treatment Upcoming Encounters Date Type Specialty Care Team Description 07/15/2021 Office Visit Internal Medicine Pepito Arevalo MD [address] [place] [address] [place] [address] Health Maintenance Due Date Last Done Comments DTaP,Tdap,and Td Vaccines (1 - Tdap) 1946 Zoster Vaccines (2 of 3) 12/10/2012 10/15/2012 DIABETES SCREEN EVERY 3 YRS-AGE 45 AND ABOVE 02/28/2022 02/28/2019, 05/30/2013 Pneumococcal Vaccine: 65+ Years Completed 07/09/2016, 09/07/2012 Influenza Vaccine (FLU shot) Completed 08/2020, 07/11/2019, 07/11/2018, Additional history exists MENINGOCOCCAL (MENACTRA/MENVEO) Aged Out No longer eligible based on patient's age to complete this topic documented as of this encounter Implants Not on filedocumented as of this encounter Advance Directives Documents on File Type Date Recorded 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
--- OUTSIDE RECORDS SUMMARY | 2023-08-10 05:22 | External Medical Summary | Summary of Care ---
Author Name Unknown Organization [place] [address] Care Team Providers Care Contact Finger Assembler Name Role Phone Pepito Arevalo MD Primary Care Provider [phone] Reason for Visit * Reason Onset Date Comments Medication Administration 07/16/2022 Flu an d/or Pneumo Inj Encounter Details Date Type Department Care Team Description 07/16/2022 Office Visit [address] [address] Pepito Arevalo MD [address] [place] [address] [place] [phone] Mild persistent asthma without complication*; Need for prophylactic vaccination and inoculation against influenza; Seasonal allergic rhinitis due to pollen; Intrinsic eczema Allergies Active Allergy Reactions Severity Noted Date Comments Environmental 09/03/2005 documented as of this encounter (statuses as of 07/16/2022) Medications Medication Sig Dispensed Refills Start Date End Date Status BENADRYL 25 MG PO CAPS 1 or 2 pills by mouth 4 times a day as needed for itching or allergies 50 Cap 1 06/27/2013 Active Cetirizine HCl (ZYRTEC ALLERGY) 10 MG CapsuleIndications :Allergic dermatitis Take 1 Cap by mouth daily. 30 Cap 5 12/23/2018 Active Fluticasone-Salmet alphonso 250-50 MCG/ACT Inhalation Aerosol Powder Breath Activated (Advair Diskus)Indications :Mild persistent asthma without complication Inhale by mouth 1 Puff in the morning AND 1 Puff before bedtime. 180 Each 1 07/16/2022 Active triamcinolone acetonide (ARISTOCORT) 0.1 % ointment Apply topically to affected area. As directed 4 03/11/2015 07/16/2022 Discontinued (Patient preference/d iscontinuati on) Fluticasone-Salmet alphonso 250-50 MCG/ACT Inhalation Aerosol Powder Breath Activated (Advair Diskus) Inhale by mouth 1 Puff in the morning AND 1 Puff before bedtime. 180 Each 1 04/30/2022 07/16/2022 Discontinued (Refill) documented as of this encounter (statuses as of 07/16/2022) Active Problems Problem Noted Date Mild persistent asthma without complicat ion 02/26/2016 Seasonal allergic rhinitis due to pollen 09/07/2012 ADVANCE DIRECTIVE INFORMATION 09/03/2005 Overview: No, Advance Directive brochure offered , patient declined. Intrinsic eczema documented as of this encounter (statuses as of 07/16/2022) Resolved Problems Problem Noted Date Resolved Date Senile cataract of left eye 09/10/201506/2016 NO KNOWN PROBLEMS 07/05/2009 09/07/2012 documented as of this encounter (statuses as of 07/16/2022) Immunizations Name Administration Dates Next Due COVID-19 mRNA, LNP-s, No Pre serve, 2-Dose Series (Moderna) 01/07/2021,12/10/2020 Pneumococcal Conjugate Vacc, 13 Valent (Prevnar) 07/09/2016 Pneumococcal Polysaccharide PPV23 (Pneumovax) 09/07/2012 Seasonal Influenza, Quadriva lent Hd (Fluzone Hd) 07/16/2022,07/15/2021 Seasonal Influenza, Quadriva lent, No Preserve, 6 Mons & Above, IM 07/11/2019,07/11/2018 Seasonal Influenza, Quadriva lent, No Preserve, Adjuvanted, 65+ Yrs, IM 07/11/2020 Seasonal Influenza, Quadriva lent, No Preserve, IM 07/09/2017,07/09/2016 Seasonal Influenza, Split, I IV3, With Preserve, Inj 07/11/2015,07/14/2014,07/27/2013,08/02,08/05/2011,08/05/2010,08/08/2009 Varicella Zoster Vaccine (Adult) 10/15/2012 documented as of this encounter Social History Tobacco Use Types Packs/Day Years Used Date Former Smoker Cigarettes 0.5 25 Quit: 11/01 Smokeless Tobacco: Never Used Alcohol Use Standard Drinks/Week Comments Yes 0 (1 standard drink = 0.6 oz pure alcohol) several deliais a day. Cut way back May 2013 Alcohol Habits Answer Date Recorded How often do you have a drin k containing alcohol? Not asked How many drinks containing a lcohol do you have on a typical day when you are drinking? Not asked How often do you have six or more drinks on one occasion? Not asked Comment: several martinis a d ay. Cut way back May 2013 05/30/2013 Food Insecurity Answer Date Recorded Within the past 12 months, y ou worried that your food would run out before you got money to buy more. Never true 07/11/2020 Within the past 12 months, t he food you bought just didn't last and you didn't have money to get more. Never true 07/11/2020 Sex Assigned at Date Recorded Not on file Job Start Date Occupation Industry Not on file Not on file Not on file documented as of this encounter Last Filed Vital Signs Vital Sign Reading Time Taken Comments Blood Pressure 136/66 07/16/2022 8:01 AM EDT Pulse 68 07/16/2022 8:01 AM EDT Temperature 35.9 C (96.7 F) 07/16/2022 8:01 AM ED T Respiratory Rate 18 07/16/2022 8:01 AM EDT Oxygen Saturation - - Inhaled Oxygen Concentration - - Weight 69.1 kg (152 lb 4 oz) 07/16/2022 8:01 AM EDT Height 171.5 cm (5' 7.5") 07/16/2022 8:01 AM EDT Body Mass Index 23.49 07/16/2022 8:01 AM EDT documented in this encounter Progress Notes * Pepito Arevalo MD - 07/16/2022 8:01 AM EDT Vikram has the Advair that he uses for his breathing. He will sometimes use the Zyrtec for allergiesand the cream that he gets in a jar from [employer] if he eczema flares up. He continues to slowly lose weight, but is not complaining of eating problems. Health Maintenance addressed. Flu shot today. Had the Coronovirus vaccine, 4 doses We only have 2 listed Past Medical History: Diagnosis Date Allergic rhinitis [...] level: Not on file Occupational History Employer: [employer] Tobacco Use Smoking status: Former Smoker Packs/day: 0.50 Years: 25.00 Pack years: 12.50 Types: Cigarettes Quit date: 11/01/2000 Years since quittin.7 Smokeless tobacco: Never Used Substance and Sexual Activity Alcohol use: Yes Comment: several martinis a day. Cut way back May 2013 Drug use: No Sexual activity: Yes Partners: Female Other Topics Concern Not on file Social History Narrative Not on file Social Determinants of Health Financial Resource Strain: Not on file Food Insecurity: Not on file Transportation Needs: Not on file Physical Activity: Not on file Stress: Not on file Social Connections: Not on file Intimate Partner Violence: Not on file Housing Stability: Not on file Current Outpatient Medications Medication Sig Dispense Refill BENADRYL 25 MG PO CAPS 1 or 2 pills by mouth 4 times a day as needed for itching or allergies 50 Cap 1 triamcinolone acetonide (ARISTOCORT) 0.1 % ointment Apply topically to affected area. As directed 4 Cetirizine HCl (ZYRTEC ALLERGY) 10 MG Capsule Take 1 Cap by mouth daily. 30 Cap 5 Fluticasone-Salmeterol 250-50 MCG/ACT Inhalation Aerosol Powder Breath Activated (Advair Diskus) Inhale by mouth 1 Puff in the morning AND 1 Puff before bedtime. 180 Each 1 No current facility-administered medications for this visit. Immunization History Administered Date(s) Administered COVID-19 mRNA, LNP-s, No Preserve, 2-Dose Series (Moderna) 12/10/2020, 01/07/2021 Pneumococcal Conjugate Vacc, 13 Valent (Prevnar) 07/09/2016 Pneumococcal Polysaccharide PPV23 (Pneumovax) 09/07/2012 Seasonal Influenza, Quadrivalent Hd (Fluzone Hd) 07/15/2021 Seasonal Influenza, Quadrivalent, No Preserve, 6 Mons & Above, IM 07/11/2018, 07/11/2019 Seasonal Influenza, Quadrivalent, No Preserve, Adjuvanted, 65+ Yrs, IM 07/11/2020 Seasonal Influenza, Quadrivalent, No Preserve, IM 07/09/2016, 07/09/2017 Seasonal Influenza, Split, IIV3, With Preserve, Inj 08/08/2009, 08/05/2010, 08/05/2011, 08/02/2012, 07/27/2013, 07/14/2014, 07/11/2015 Varicella Zoster Vaccine (Adult) 10/15/2012 Results for orders placed or performed in visit on 05/30/13 COMPR METAB PANEL Result Value Ref Range BUN 9 6 - 20 mg/dL Creatinine 0.9 0.7 - 1.3 mg/dL Estimated Glomerular Filtration Rate >60.0 >60 mL/min Sodium 138 135 - 146 mmol/L Potassium 4.2 3.5 - 5.1 mmol/L Chloride 99 98 - 111 mmol/L CO2 27 22 - 32 mmol/L Anion Gap 12 7 - 15 mmol/L Glucose 108 70 - 120 mg/dL Albumin 4.6 3.8 - 5.0 g/dL AST 17 10 - 50 U/L Alkaline Phosphatase 89 0 - 153 U/L Bilirubin, Total 0.6 0.3 - 1.3 mg/dL Calcium 9.8 8.3 - 10.5 mg/dL Protein 7.7 6.0 - 8.3 g/dL ALT 14 10 - 50 U/L O: Blood pressure 136/66, pulse 68, temperature 35.9 C (96.7 F), temperature source Tympanic, resp. rate 18, height 1.715 m (5' 7.5"), weight 69.1 kg (152 lb 4 oz). General appearance: well developed, well nourished and in no acute distress. Neck is supple withoutadenopathy or thyromegaly. Chest is symmetrical and moves normally. The lungs are clear without wheezes, rales, rhonchi or rubs, and the heart is regular without murmurs or gallops, or ectopy. PMI not displaced. A: Mild persistent asthma without complication (Primary) - Fluticasone-Salmeterol 250-50 MCG/ACT Inhalation Aerosol Powder Breath Activated (Advair Diskus);Inhale by mouth 1 Puff in the morning AND 1 Puff before bedtime. Need for prophylactic vaccination and inoculation against influenza - INFLUENZA VACC, QUAD, HIGH DOSE (FLUZONE HD) Seasonal allergic rhinitis due to pollen Intrinsic eczema Follow Up: Return in about 1 year (around 07/16/2023) for Clinic Visit. | For: Clinic Visit * Violetta Hernandez LPN - 07/16/2022 7:58 AM EDT PRE - ADMINISTRATION DOCUMENTATION Are you experiencing any cold symptoms or fever? No Have you had Guillain-[place] Syndrome (an illness that causes paralysis) within the last 6 weeks? No Have you had the flu shot in the past? YES Have you ever had a reaction to the flu shot? No Violetta Hernandez LPN, 07/16/2022 7:58 AM Immunization Administration Documentation Time Out Procedure Performed: Yes Patient Identified (Ask Name/Date of ): Yes Does the patient have a fever greater than 101 degrees today? No Patient allergic to latex? No VFC Stock: No Immunization(s) verified: Yes, Immunization Name: Flu, VIS Sheet(s) given: Yes Verified Side and Site: Yes Verified Shot(s) with Parent(s)/Patient: Yes documented in this encounter Nursing Notes * Violetta Hernandez LPN - 07/16/2022 7:58 AM EDT 1 year check Doing ok. documented in this encounter Plan of Treatment Upcoming Encounters Date Type Specialty Care Team Description 07/19/2023 Office Visit Family Medicine Pepito Arevalo MD [address] [place] [address] [place] [address] Health Maintenance Due Date Last Done Comments DTaP,Tdap,and Td Vaccines (1 - Tdap) 1954 Zoster Vaccines (2 of 3) 12/10/2012 10/15/2012 COVID-19 Vaccine (3 - Booster for Moderna series) 06/09/2021 01/07/2021, 12/10/2020 Depression Screening, Annual for Pts 12 and Over 07/11/2021 07/11/2020 Pneumococcal Vaccine: 65+ Years Completed 07/09/2016, 09/07/2012 Influenza Vaccine (FLU shot) Completed , 07/15/2021, 07/11/2020, Additional history exists GARDASIL-HPV IMMUNIZATION SERIES Aged Out No longer eligible based on patient's age to complete this topic Hepatitis B Aged Out No longer eligi ble based on patient's age to complete this topic MENINGOCOCCAL (MENACTRA/MENVEO) Aged Out No longer eligible based on patient's age to complete this topic documented as of this encounter Implants Not on filedocumented as of this encounter Visit Diagnoses Diagnosis Mild persistent asthma without complication- Primary Unspecified asthma Need for prophylactic vaccination and inoculation against influenza Seasonal allergic rhinitis due to pollen Intrinsic eczema documented in this encounter Advance Directives Documents on File Type Date Recorded Patient Clinical Informatics Specialist Expl anation Advanced Directive service a je default Advanced Directive service a je default Advanced Directive service a je default Advanced Directive Advanced Directive Advanced Directive Advanced Directive Advanced Directive Advanced Directive Advanced Directive Advanced Directive Care Teams Contact Finger Assembler Relationship Specialty Start Date End Date Pepito Arevalo MD PCP - General 07/05/09 documented as of this encounter
--- OUTSIDE RECORDS SUMMARY | 2023-08-10 05:22 | External Medical Summary ---
Author Name Unknown Organization [id number]:[facility] [place] [address] Laboratory Report Ordering Provider Test Date Status BENITO OROURKE MD 05/30/2013 10:35:00-0400 Final Obs # Observation Date Value ABNL Reference Status Pe rforming Location 1 BUN 05/30/2013 12:37-0400 9 6-20 mg/dL Final 2 Creatinine 05/30/2013 12:37-0400 0.9 0.7-1.3 mg/dL Final GFR should be used to assess renal function. Plasma/Serum creatinine may not be able to properly reflect renal function in some cases.
--- OUTSIDE RECORDS SUMMARY | 2023-08-10 05:22 | External Medical Summary | Summary of Care ---
Author Name Unknown Organization [place] [address] Phone Care Team Providers Care Manager Database Name Role Phone Pepito Arevalo MD Primary Care Provider [phone] Reason for Visit * Reason Comments Acute pt reports lump on b ack of left hand x 10 days Encounter Details Date Type Department Care Team Description 04/11/2018 Office Visit Internal Medicine [address] [address] Brissa Rizzo PA-C [address] [place] [address] [place] [address] [phone] Ganglion cyst* Allergies Active Allergy Reactions Severity Noted Date Comments Environmental 09/03/2005 as of this encounter Medications Prescription Sig. Disp. Refills Start Date End Date Status BENADRYL 25 MG PO CAPS 1 or 2 pills by mouth 4 times a day as needed for itching or allergies 50 Cap 1 06/27/2013 Active triamcinolone acetonide (ARISTOCORT) 0.1 % ointment Apply topically to affected area. As directed 4 03/11/2015 Active chlorHEXIDINE (PERIOGARD) 0.12 % solution RINSE 1 TO 2 TIMES DAILY DIRECTED 4 06/25/2017 Active fluticasone-salmeter ol (ADVAIR DISKUS) 250-50 MCG/DOSE inhalerIndications:M ild persistent asthma without complication Inhale 1 Puff by mouth 2 times a day. Rinse mouth daily. 1 Disk Dosing Unit 5 07/09/2017 Active as of this encounter Active Problems Problem Noted Date Mild persistent asthma without complicat ion 02/26/2016 Allergic rhinitis 09/07/2012 ADVANCE DIRECTIVE INFORMATION 09/03/2005 Overview: No, Advance Directive brochure offered , patient declined. as of this encounter Resolved Problems Problem Noted Date Resolved Date Senile cataract of left eye 09/10/201506/2016 NO KNOWN PROBLEMS 07/05/2009 09/07/2012 as of this encounter Immunizations Name Dates Previously Given Next Due Pneumococcal Conjugate Vacc, 13 Valent (Prevnar) 07/09/2016 Pneumococcal Polyvalent Vacc (Pneumovax) 09/07/2012 Seasonal Influenza, Quadriva lent, No Preserve, IM 07/09/2017,07/09/2016 Seasonal Influenza, Trivalen t, with Preserve, 3yr & Above, Split 07/11/2015,07/14/2014,07/27/2013,12/2011,08/05/2011,08/05/2010,08/08/20 09 Varicella Zoster Vaccine (Adult) 10/15/2012 as of this encounter Social History Tobacco Use Types Packs/Day Years Used Date Former Smoker Cigarettes 0.5 25 Quit: 11/01 Smokeless Tobacco: Never Used Alcohol Use Drinks/Week oz/Week Comments Yes several martini s a day. Cut way back May 2013 Sex Assigned at Date Recorded Not on file as of this encounter Last Filed Vital Signs Vital Sign Reading Time Taken Blood Pressure 138/78 04/11/2018 3:23 PM EDT Pulse 76 04/11/2018 3:23 PM EDT Temperature 36.9 C (98.5 F) 04/11/2018 3 :23 PM EDT Respiratory Rate 20 04/11/2018 3:23 PM EDT Oxygen Saturation - - Inhaled Oxygen Concentration - - Weight 75.8 kg (167 lb 3.2 oz) 04/11/20 18 3:23 PM EDT Height - - Body Mass Index 23.99 04/11/2018 3:23 PM EDT in this encounter Progress Notes * Brissa Rizzo PA-C - 04/11/2018 3:28 PM EDT Formatting of this note may be different from the original. Nursing Notes: Shorty Rose LPN 04/11/18 1521 Unsigned Chief Complaint Patient presents with Acute pt reports lump on back of left hand x 10 days Pt here today with lump at back of left hand for the past 10 days. Pt denies pain, redness, hot to touch. Pt has hx of ganglion cyst. Review of patient's allergies indicates: Allergen Reactions Environmental Current Outpatient Prescriptions Medication Sig Dispense Refill BENADRYL 25 MG PO CAPS 1 or 2 pills by mouth 4 times a day as needed for itching or allergies 50 Cap 1 chlorHEXIDINE (PERIOGARD) 0.12 % solution RINSE 1 TO 2 TIMES DAILY DIRECTED 4 fluticasone-salmeterol (ADVAIR DISKUS) 250-50 MCG/DOSE inhaler Inhale 1 Puff by mouth 2 times aday. Rinse mouth daily. 1 Disk Dosing Unit 5 triamcinolone acetonide (ARISTOCORT) 0.1 % ointment Apply topically to affected area. 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 Cut way back May 2013 Drug use: No Sexual activity: Yes Partners: Female Other Topics Concern Not on file Social History Narrative O:Blood pressure 138/78, pulse 76, temperature 36.9 C (98.5 F), temperature source Tympanic, resp. rate 20, weight 75.8 kg (167 lb 3.2 oz). GENERAL: alert, healthy, no distress, well nourished and well developed EXTREMITIES: left hand - small cyst felt at top of hand - base of index/middle finger. No tenderness, no erythema, not hot to touch. A:M67.40 Ganglion cyst (primary encounter diagnosis) Plan: Xr hand 3 or more views Will xray hand. Discussed likelihood of ganglion cyst. Any questions/problems, please call. Follow up: Return if symptoms worsen or fail to improve. Brissa Rizzo PA-C in this encounter Nursing Notes * ChattahoocheeShorty ruiz LPN - 04/11/2018 3:21 PM EDT Formatting of this note may be different from the original. Chief Complaint Patient presents with Acute pt reports lump on back of left hand x 10 days in this encounter Plan of Treatment Upcoming Encounters Date Type Specialty Care Team Description 04/11/2018 Office Visit Internal Medicine Brissa Rizzo PA-C [address] [place] [address] [place] [address] [phone] Ganglion cyst* 04/11/2018 Imaging Radiology Arrived 07/11/2018 Office Visit Internal Medicine Pepito Arevalo MD [address] [place] [address] [place] [address] [phone] Scheduled Tests Name Priority Associated Diagnoses Order S chedule XR HAND 3 OR MORE VIEWS Routine Ganglion cyst Ordered: 04/11/2018 Health Maintenance Due Date Last Done Comments DTaP,Tdap,and Td Vaccines (1 - Tdap) 1954 DIABETES SCREEN EVERY 3 YRS- AGE 45 AND ABOVE 05/30/2016 05/30/2013 *ASTHMA ACTION PLAN-ADULT YEARLY 02/28/2017 *ASTHMA CONTROL TEST IN LAST 90 DAYS-ADULT 10/10/2017 PNEUMOCOCCAL ADULT 65 YRS AND OVER Completed 2015, 09/07/2012 Influenza Vaccine (FLU shot) Completed 06/2017, 07/09/2016, 07/11/2015, Additional history exists as of this encounter Implants Not on fileas of this encounter Visit Diagnoses Diagnosis Ganglion cyst - Primary Ganglion, unspecified in this encounter
--- OUTSIDE RECORDS SUMMARY | 2023-08-10 05:22 | External Medical Summary | Summary of Care ---
Author Name Unknown Organization [place] [address] Care Team Providers Care Low Raw Sugar Cutter Name Role Phone Pepito Arevalo MD Primary Care Provider [phone] Reason for Visit * Reason Onset Date Comments Health Maintenance 09/30/2021 Encounter Details Date Type Department Care Team Description 09/30/2021 Telephone Family Medicine [address] [address] Pepito Arevalo MD [address] [place] [address] [place] [address] Health Maintenance Allergies Active Allergy Reactions Severity Noted Date Comments Environmental 09/03/2005 documented as of this encounter (statuses as of 09/30/2021) Medications Medication Sig Dispensed Refills Start Date [...] mouth daily. 30 Cap 5 12/23/2018 Active Fluticasone-Salmeterol 250-50 MCG/DOSE Inhalation Aerosol Powder Breath Activated (Advair Diskus)Indications:Mil d persistent asthma without complication Inhale 1 Puff by mouth 2 times a day. Rinse mouth daily. 14 Each 3 07/15/2021 Active documented as of this encounter (statuses as of 09/30/2021) Active Problems Problem Noted Date Mild persistent asthma without complicat ion 02/26/2016 Seasonal allergic rhinitis due to pollen 09/07/2012 ADVANCE DIRECTIVE INFORMATION 09/03/2005 Overview: No, Advance Directive brochure offered , patient declined. Intrinsic eczema documented as of this encounter (statuses as of 09/30/2021) Resolved Problems Problem Noted Date Resolved Date Senile cataract of left eye 09/10/201506/2016 NO KNOWN PROBLEMS 07/05/2009 09/07/2012 documented as of this encounter (statuses as of 09/30/2021) Immunizations Name Administration Dates Next Due COVID-19 mRNA, LNP-s, No Pre serve, 2-Dose Series (Moderna) 01/07/2021,12/10/2020 Pneumococcal Conjugate Vacc, 13 Valent (Prevnar) 07/09/2016 Pneumococcal Polysaccharide PPV23 (Pneumovax) 09/07/2012 Seasonal Influenza, Quadriva lent Hd (Fluzone Hd) 07/15/2021 Seasonal Influenza, Quadriva lent, No Preserve, 6 [...] drink = 0.6 oz pure alcohol) several martinis a day. Cut way back May 2013 Alcohol Habits Answer Date Recorded How often do you have a drin k containing alcohol? Not asked How many drinks containing a lcohol do you have on a typical day when you are drinking? Not asked How often do you have six or more drinks on one occasion? Not asked Comment: several ramez deras. Cut way back May 2013 05/30/2013 Food [...] on file documented as of this encounter Miscellaneous Notes * Telephone Encounter - Maura Burdick LPN - 09/30/2021 9:43 AM EST Care Gaps Comprehensive Care Outreach Last Office/Telemedicine Visit: Last Office/Telemedicine Visit: 07/15/2021 Last Office/Telemedine Visit Annual Wellness: due Next Office Visit:Next Office Visit: 07/16/2022 Scheduled Provider(s): Pepito Arevalo MD Reviewed Health Maintenance below Health Maintenance Topic Date Due DTaP,Tdap,and Td Vaccines (1 - Tdap) Never done Zoster Vaccines (2 of 3) 12/10/2012 COVID-19 Vaccine (3 - Booster for Moderna series) 07/10/2021 Care Gap Outreach Action Taken: Left message documented in this encounter Plan of Treatment Upcoming Encounters Date Type Specialty Care Team Description 07/16/2022 Office Visit Family Medicine Pepito Arevalo MD [address] [place] [address] [place] [address] Health Maintenance Due Date Last Done Comments DTaP,Tdap,and Td Vaccines (1 - Tdap) 1954 Zoster Vaccines (2 of 3) 12/10/2012 10/15/2012 COVID-19 Vaccine (3 - Booster for Moderna series) 07/10/2021 01/07/2021, 12/10/2020 *DEPRESSION SCREENING,ANNUAL FOR PTS 12 AND OVER 07/13/2021 DIABETES SCREEN EVERY 3 YRS-AGE 45 AND ABOVE 02/28/2022 02/28/2019, 05/30/2013 Pneumococcal Vaccine: 65+ Years Completed 07/09/2016, 09/07/2012 Influenza Vaccine (FLU shot) Completed , 07/11/2020, 07/11/2019, Additional history exists MENINGOCOCCAL (MENACTRA/MENVEO) Aged Out No longer eligible based on patient's age to complete this topic documented as of this encounter Implants Not on filedocumented as of this encounter Advance Directives Documents on File Type Date Recorded 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
--- OUTSIDE RECORDS SUMMARY | 2023-08-10 05:22 | External Medical Summary ---
Author Name Unknown Organization K01:[facility], [address] [id number] Laboratory Report Ordering Provider Test Date Status BENITO OROURKE MD 05/30/2013 10:35:00-0400 Final Obs # Observation Date Value ABNL Reference Status Pe rforming Location 1 Ammonia 05/30/2013 21:17-0400 16 L 17-47 umol/L Final
--- OUTSIDE RECORDS SUMMARY | 2023-08-10 05:22 | External Medical Summary | Summary of Care ---
Author Name Unknown Organization [place] [address] Phone Care Team Providers Care Invasive Cardiovascular Technologist Name Role Phone Pepito Arevalo MD Primary Care Provider [phone] Reason for Visit * Reason Comments APPOINTMENT AWV Encounter Details Date Type Department Care Team Description 05/25/2017 Telephone Internal Medicine [address] [address] Pepito Arevalo MD [address] [place] [address] [place] [phone] APPOINTMENT (AWV) Allergies Active Allergy Reactions Severity Noted Date [...] affected area. As directed 4 03/11/2015 Active albuterol (VENTOLIN HFA) 108 (90 BASE) MCG/ACT inhaler Inhale 2 Puffs by mouth every 4 hours as needed for Cough, Shortness of Breath or Wheezing. 1 Inhaler 11 02/26/2016 7 Discontinued fluticasone-salmet alphonso (ADVAIR DISKUS) 250-50 MCG/DOSE inhalerIndications :Mild persistent asthma without complication Inhale 1 Puff by mouth 2 times a day. Rinse mouth daily. 1 Disk Dosing Unit 5 07/09/2016 7 Discontinued as of this encounter Active Problems Problem [...] Seasonal Influenza, Quadriva lent, No Preserve, IM 07/09/2016 Seasonal Influenza, Trivalen t, with Preserve, 3yr [...] Not on file as of this encounter Miscellaneous Notes * Telephone Encounter - Sarika Carter RN - 10/27/2017 1:41 PM EST Patient was contacted for AWV. Last Office Visit: 07/09/2016 Care Gap Outreach Action Taken: Called: Declined: Patient Preference Sarika Carter RN 10/27/2017 * Telephone Encounter - Kathy Arredondo LPN - 05/25/2017 11:12 AM EDT Patient was contacted for AWV. Last Office Visit: 07/09/2016 Care Gap Outreach Action Taken: Called: Unable to Contact. Rupali Arredondo LPN 05/25/2017 in this encounter Plan of Treatment Upcoming Encounters Date Type Specialty Care Team Description 07/11/2018 Office Visit Internal Medicine Pepito Arevalo MD [address] [place] [address] [place] [phone] Health Maintenance Due Date Last Done Comments TETANUS EVERY 10 YEARS-TDAP (BOOSTRIX OR ADACEL) SUGGESTED IF NOT RECEIVED IN THE PAST. 2001 *ADVANCE DIRECTIVE NOT ON FILE 11/18/2014 DIABETES SCREEN EVERY 3 YRS- AGE 45 AND ABOVE 05/30/2016 05/30/2013 *ASTHMA ACTION PLAN-ADULT YEARLY 02/28/2017 *ASTHMA CONTROL TEST IN LAST 90 DAYS-ADULT 10/10/2017 PNEUMOCOCCAL ADULT 65 YRS AND OVER Completed 2015, 09/07/2012 Influenza Vaccine (FLU shot) Completed 06/2017, 07/09/2016, 07/11/2015, Additional history exists as of this encounter Implants Not on fileas of this encounter Insurance Payer Benefit Plan / Group Subscriber ID Type Phone Address MEDICARE MEDICARE A AND B [id number] Medicare [place] MEDICARE SUPPLEMENT SECURITY 65 [id number] [address] [place] [address] [place] [place] [place] [place] [id number] as of this encounter
--- OUTSIDE RECORDS SUMMARY | 2023-08-10 05:22 | External Medical Summary | Summary of Care ---
Author Name Unknown Organization [place] [address] Care Team Providers Care Manager Work Name Role Phone Pepito Arevalo MD Primary Care Provider [phone] Reason for Visit * Reason Comments Previsit Planning Encounter Details Date Type Department Care Team Description 01/18/2019 Telephone Internal Medicine [address] [address] Pepito Arevalo MD [address] [place] [address] [place] [address] Previsit Planning Allergies Active Allergy Reactions Severity Noted Date Comments Environmental 09/03/2005 documented as of this encounter (statuses as of 01/18/2019) Medications Medication Sig Dispensed Refills Start Date End Date Status BENADRYL 25 MG PO CAPS 1 or 2 pills by mouth 4 times a day as needed for itching or allergies 50 Cap 1 06/27/2013 Active triamcinolone acetonide (ARISTOCORT) 0.1 % ointment Apply topically to affected area. As directed 4 03/11/2015 Active fluticasone-salmete rol (ADVAIR DISKUS) 250-50 MCG/DOSE inhalerIndications: Mild persistent asthma without complication Inhale 1 Puff by mouth 2 times a day. Rinse mouth daily. 1 Disk Dosing Unit 5 07/11/2018 Active Cetirizine HCl (ZYRTEC ALLERGY) 10 MG CapsuleIndications: Allergic dermatitis Take 1 Cap by mouth daily. 30 Cap 5 12/23/2018 Active documented as of this encounter (statuses as of 01/18/2019) Active Problems Problem Noted Date Mild persistent asthma without complicat ion 02/26/2016 Allergic rhinitis 09/07/2012 ADVANCE DIRECTIVE INFORMATION 09/03/2005 Overview: No, Advance Directive brochure offered , patient declined. documented as of this encounter (statuses as of 01/18/2019) Resolved Problems Problem Noted Date Resolved Date Senile cataract of left eye 09/10/2015 09/0 06/2016 NO KNOWN PROBLEMS 07/05/2009 09/07/2012 documented as of this encounter (statuses as of 01/18/2019) Immunizations Name Dates Previously Given Next Due Pneumococcal Conjugate Vacc, 13 Valent (Prevnar) 07/09/2016 Pneumococcal Polysaccharide PPV23 (Pneumovax) 09/07/2012 Seasonal Influenza, Quadriva lent, No Preserve, 6 Mons & Above, IM 07/11/2018 Seasonal Influenza, Quadriva lent, No Preserve, IM 07/09/2017,07/09/2016 Seasonal Influenza, Trivalen t, with Preserve, 3yr & Above, Split 07/11/2015,07/14/2014,07/27/2013,12/2011,08/05/2011,08/05/2010,2008 Varicella Zoster Vaccine (Adult) 10/15/2012 documented as [...] encounter Miscellaneous Notes * Telephone Encounter - Jessica Lovelace LPN - 01/18/2019 11:34 AM EDT Patient contacted for Care Gaps Comprehensive Care Outreach. Last Office Visit: 12/23/2018 Next Office Visit: 07/11/2019 Scheduled Provider(s): Pepito Arevalo MD Health Maintenance Due Topic Date Due DTaP,Tdap,and Td Vaccines (1 - Tdap) 1954 DIABETES SCREEN EVERY 3 YRS-AGE 45 AND ABOVE 05/30/2016 Outreach action taken: Contacted: Left message. awv documented in this encounter Plan of Treatment Upcoming Encounters Date Type Specialty Care Team Description 07/11/2019 Office Visit Internal Medicine Pepito Arevalo MD [address] [place] [address] [place] [address] Health Maintenance Due Date Last Done Comments DTaP,Tdap,and Td Vaccines (1 - Tdap) 1954 DIABETES SCREEN EVERY 3 YRS-AGE 45 AND ABOVE 05/30/2016 05/30/2013 PNEUMOCOCCAL ADULT 65 YRS AND OVER Completed 07/09/2016, 09/07/2012 Influenza Vaccine (FLU shot) Completed 08/2018, 07/09/2017, 07/09/2016, Additional history exists MENINGOCOCCAL (MENACTRA) Aged Out No longer eligible based on patient's age to complete this topic documented as of this encounter Implants Not on filedocumented as of this encounter Advance Directives Patient has advance care planning documents on file. For more information, please contact: [place] [phone]
--- OUTSIDE RECORDS SUMMARY | 2023-08-10 05:22 | External Medical Summary ---
Author Name Unknown Organization [id number]iv [address]rich[address] [place] [address] Laboratory Report Ordering Provider Test Date Status BENITO OROURKE MD 05/30/2013 10:35:00-0400 Final Obs # Observation Date Value ABNL Reference Status Pe rforming Location 1 hours fasting 05/30/2013 10:46-0400 PATIENT NOT FASTING hours Final 2 Triglyceride 05/30/2013 21:28-0400 99 <200 mg/dL Final TRIGLYCERIDE REFERENCE RANGES (mg/dL) <150 NORMAL 150-199 BORDERLINE HIGH 200-499 HIGH >499 VERY HIGH TOTAL CHOLESTEROL REFERENCE RANGES(mg/dL) <200 DESIRABLE 200-239 BORDERLINE HIGH >239 HIGH HDL CHOLESTEROL REFERENCE RANGES(mg/dL) <40 LOW(UNDESIRABLE) >59 HIGH(DESIRABLE) LDL CHOLESTEROL REFERENCE RANGES(mg/dL) <100 OPTIMAL GOAL FOR HIGH RISK PATIENTS 100-129 NEAR OR ABOVE NORMAL 130-159 BORDERLINE HIGH 160-189 HIGH >189 VERY HIGH
--- OUTSIDE RECORDS SUMMARY | 2023-08-10 05:22 | External Medical Summary | Summary of Care ---
Author Name Unknown Organization [place] [address] Care Team Providers Care Ocean Lifeguard Name Role Phone Pepito Arevalo MD Primary Care Provider Reason for Visit * Reason Comments Re-Check Medication Administration Flu and/or Pne umo Inj Encounter Details Date Type Department Care Team Description 07/11/2019 Office Visit Internal Medicine [address] [phone] Pepito Arevalo MD [address] [place] [address] Mild persistent asthma without complication*; Need for prophylactic vaccination and inoculation against influenza; Seasonal allergic rhinitis due to pollen; Intrinsic eczema Allergies Active Allergy Reactions Severity Noted Date Comments Environmental 09/03/2005 documented as of this encounter (statuses as of 07/11/2019) Medications Medication Sig Dispensed Refills Start Date End Date Status BENADRYL 25 MG PO CAPS 1 or 2 pills by mouth 4 times a day as needed for itching or allergies 50 Cap 1 06/27/2013 Active triamcinolone acetonide (ARISTOCORT) 0.1 % ointment Apply topically to affected area. As directed 4 03/11/2015 Active Cetirizine HCl (ZYRTEC ALLERGY) 10 MG CapsuleIndication s:Allergic dermatitis Take 1 Cap by mouth daily. 30 Cap 5 12/23/2018 Active fluticasone-salme terol (ADVAIR DISKUS) 250-50 MCG/DOSE inhalerIndication s:Mild persistent asthma without complication Inhale 1 Puff by mouth 2 times a day. Rinse mouth daily. 1 Disk Dosing Unit 5 07/11/2019 Active fluticasone-salme terol (ADVAIR DISKUS) 250-50 MCG/DOSE inhalerIndication s:Mild persistent asthma without complication Inhale 1 Puff by mouth 2 times a day. Rinse mouth daily. 1 Disk Dosing Unit 5 07/11/2018 9 Discontinued documented as of this encounter (statuses as of 07/11/2019) Active Problems Problem Noted Date Mild persistent asthma without complicat ion 02/26/2016 Allergic rhinitis 09/07/2012 ADVANCE DIRECTIVE INFORMATION 09/03/2005 Overview: No, Advance Directive brochure offered , patient declined. Intrinsic eczema documented as of this encounter (statuses as of 07/11/2019) Resolved Problems Problem Noted Date Resolved Date Senile cataract of left eye 09/10/201506/2016 NO KNOWN PROBLEMS 07/05/2009 09/07/2012 documented as of this encounter (statuses as of 07/11/2019) Immunizations Name Administration Dates Next Due Pneumococcal Conjugate Vacc, 13 Valent (Prevnar) 07/09/2016 Pneumococcal Polysaccharide PPV23 (Pneumovax) 09/07/2012 Seasonal Influenza, Quadriva lent, No Preserve, 6 Mons & Above, IM 07/11/2019,07/11/2018 Seasonal Influenza, Quadriva lent, No Preserve, IM [...] Sign Reading Time Taken Comments Blood Pressure 120/71 07/11/2019 8:13 AM EDT Pulse 80 07/11/2019 8:13 AM EDT Temperature 36.2 C (97.2 F) 07/11/2019 8:13 AM ED T Respiratory Rate 16 07/11/2019 8:13 AM EDT Oxygen Saturation - - Inhaled Oxygen Concentration - - Weight 71.7 kg (158 lb 2 oz) 07/11/2019 8:13 AM EDT Height 177.8 cm (5' 10") 07/11/2019 8:13 AM EDT Body Mass Index 22.69 07/11/2019 8:13 AM EDT documented in this encounter Progress Notes * Pepito Arevalo MD - 07/11/2019 8:18 AM EDT He found out that all his itching was related to eczema. He is using the creams and antihistamines.He is pretty good during the day but itches more at night and that makes it difficult to get a lisa's sleep. His asthma and allergies are fairly well controled otherwise. No complaints of headache, trouble with vision or hearing. Eating well, with no bowel or bladder complaints. Denies chest pain or palpitations. Denies shortness of breath, PND, or orthopnea. No changes in mentation. The rest of a 10 point review of systems is negative. Health Maintenance addressed. Flu shot today. Past [...] level: Not on file Occupational History Employer: [id number] Social Needs Financial resource strain: Not on file Food insecurity: Worry: Not on file Inability: Not on file Transportation needs: Medical: Not on file Non-medical: [...] file Gets together: Not on file Attends religion service: Not on file Active member of [...] file Social History Narrative Not on file Current Outpatient Medications Medication Sig Dispense Refill Cetirizine HCl (ZYRTEC ALLERGY) 10 MG Capsule Take 1 Cap by mouth daily. 30 Cap 5 fluticasone-salmeterol (ADVAIR DISKUS) 250-50 MCG/DOSE inhaler Inhale 1 Puff by mouth 2 times aday. Rinse mouth daily. 1 Disk Dosing Unit 5 triamcinolone acetonide (ARISTOCORT) 0.1 % ointment Apply topically to affected area. As directed 4 BENADRYL 25 MG PO CAPS 1 or 2 pills by mouth 4 times a day as needed for itching or allergies 50 Cap 1 Immunization History Administered Date(s) Administered Pneumococcal Conjugate Vacc, 13 Valent (Prevnar) 07/09/2016 Pneumococcal Polysaccharide PPV23 (Pneumovax) 09/07/2012 Seasonal Influenza, Quadrivalent, No Preserve, 6 Mons & Above, IM 07/11/2018 Seasonal Influenza, Quadrivalent, No Preserve, IM 07/09/2016, 07/09/2017 Seasonal Influenza, Trivalent, with Preserve, 3yr & Above, Split 08/08/2009, 08/05/2010, 08/05/2011, 08/02/2012, 07/27/2013, 07/14/2014, 07/11/2015 Varicella Zoster Vaccine (Adult) 10/15/2012 O: Temperature 36.2 C (97.2 F), temperature source Tympanic, height 1.778 m (5' 10"), weight 71.7 kg (158 lb 2 oz). Head normocephalic and atraumatic. No facial asymmetry. Eye exam; PEERLA, EOMI. No scleral icterus or nystagmus. Conjunctiva are pink and not injected. Oropharynx: no exudate, no pharyngeal inflammation or post nasal drip. The palate is free of lesions and the uvula is normal. Trachea is in the midline. Neck supple with no adenopathy or thyromegaly. No carotid bruits. Chest expands equally and is symmetrical with normal AP diameter. Lungs clear, with no wheezes, rales, or rhonchi. Heart: S1 and S2 normal. PMI not obviously displaced. Heart regular, no murmurs, gallops, clicks or rubs. No CVAtenderness. No calf swelling or tenderness. No pedal edema. He has dry skin and some bruises. Extremities unremarkable. A: Mild persistent asthma without complication (Primary) - fluticasone-salmeterol (ADVAIR DISKUS) 250-50 MCG/DOSE inhaler; Inhale 1 Puff by mouth 2 times a day. Rinse mouth daily. Need for prophylactic vaccination and inoculation against influenza - INFLUENZA VACC, QUAD, PF, 6 MONTHS & UP, 0.5 ML, IM Seasonal allergic rhinitis due to pollen Intrinsic eczema Follow Up: Return in about 1 year (around 07/11/2020). documented in this encounter Nursing Notes * Violetta Hernandez LPN - 07/11/2019 8:13 AM EDT 1 year check Discuss eczema documented in this encounter Plan of Treatment Upcoming Encounters Date Type Specialty Care Team Description 07/11/2020 Office Visit Internal Medicine Pepito Arevalo MD [address] [place] [address] [place] [phone] Health Maintenance Due Date Last Done Comments DTaP,Tdap,and Td Vaccines (1 - Tdap) 1954 Influenza Vaccine (FLU shot) (#1) 2019 07/11/2018, 07/09/2017, 07/09/2016, Additional history exists DIABETES SCREEN EVERY 3 YRS-AGE 45 AND ABOVE 02/28/2022 02/28/2019, 05/30/2013 PNEUMOCOCCAL ADULT 65 YRS AND OVER Completed 07/09/2016, 09/07/2012 MENINGOCOCCAL (MENACTRA) Aged Out No longer eligible [...] Documents on File Type Date Recorded Patient Care Management Specialist Expl anation Advanced Directive service a je default Advanced Directive service a je default Advanced Directive service a je default Advanced Directive Advanced Directive Advanced Directive Advanced Directive Advanced Directive
--- OUTSIDE RECORDS SUMMARY | 2023-08-10 05:22 | External Medical Summary | Summary of Care ---
Author Name Unknown Organization [place] [address] Care Team Providers Care Speech Professor Name Role Phone Pepito Arevalo MD Primary Care Provider [phone] Reason for Visit * Reason Onset Date Comments Re-Check Medication Administration 07/15/2021 Flu an d/or Pneumo Inj Encounter Details Date Type Department Care Team Description 07/15/2021 Office Visit [address] [phone] Pepito Arevalo MD [address] [place] [address] [place] [address] Mild persistent asthma without complication*; Need for prophylactic vaccination and inoculation against influenza; Intrinsic eczema Allergies Active Allergy Reactions Severity Noted Date Comments Environmental 09/03/2005 documented as of this encounter (statuses as of 07/15/2021) Medications Medication Sig Dispensed Refills Start Date [...] mouth daily. 30 Cap 5 12/23/2018 Active Fluticasone-Salmete rol 250-50 MCG/DOSE Inhalation Aerosol Powder Breath Activated (Advair Diskus)Indications: Mild persistent asthma without complication Inhale 1 Puff by mouth 2 times a day. Rinse mouth daily. 14 Each 3 07/15/2021 Active fluticasone-salmete rol (ADVAIR DISKUS) 250-50 MCG/DOSE inhalerIndications: Mild persistent asthma without complication Inhale 1 Puff by mouth 2 times a day. Rinse mouth daily. 14 Each 3 07/11/2020 07/15/2021 Discontinued (Refill) documented as of this encounter (statuses as of 07/15/2021) Active Problems Problem Noted Date Mild persistent asthma without complicat ion 02/26/2016 Seasonal allergic rhinitis due to pollen 09/07/2012 ADVANCE DIRECTIVE INFORMATION 09/03/2005 Overview: No, Advance Directive brochure offered , patient declined. Intrinsic eczema documented as of this encounter (statuses as of 07/15/2021) Resolved Problems Problem Noted Date Resolved Date Senile cataract of left eye 09/10/201506/2016 NO KNOWN PROBLEMS 07/05/2009 09/07/2012 documented as of this encounter (statuses as of 07/15/2021) Immunizations Name Administration Dates Next Due COVID-19 [...] Sign Reading Time Taken Comments Blood Pressure 124/74 07/15/2021 8:04 AM EDT Pulse 72 07/15/2021 8:04 AM EDT Temperature 36.2 C (97.2 F) 07/15/2021 8:04 AM ED T Respiratory Rate 16 07/15/2021 8:04 AM EDT Oxygen Saturation - - Inhaled Oxygen Concentration - - Weight 71.9 kg (158 lb 8 oz) 07/15/2021 8:04 AM EDT Height 172.7 cm (5' 8") 07/15/2021 8:04 AM EDT Body Mass Index 24.1 07/15/2021 8:04 AM EDT documented in this encounter Progress Notes * Pepito Arevalo MD - 07/15/2021 8:04 AM EDT Vikram has had another MOHS behind Left ear down in [place]. He is trouble getting up out of a chairand is a little hunched over when he walks. Mentally he is still quite with it. He mentions my brother dying last year. He needs a refill on the Advair; it really helps him. Denies nausea, vomiting, or diarrhea. Denies fevers, chills or sweats. No chest pain or dyspnea. Health Maintenance addressed. Flu shot today. Had the Coronovirus vaccine. Past Medical History: Diagnosis Date Allergic rhinitis [...] level: Not on file Occupational History Employer: [employer] Social Needs Financial resource strain: Not on file Food insecurity Worry: Never true Inability: Never true Transportation needs Medical: Not on file Non-medical: Not on file Tobacco Use Smoking status: Former Smoker Packs/day: 0.50 Years: 25.00 Pack years: 12.50 Types: Cigarettes Quit date: 11/01/2000 Years since quittin.7 Smokeless tobacco: Never Used Substance and Sexual Activity Alcohol use: Yes Comment: several martinis a day. Cut way back May 2013 Drug use: No Sexual activity: Yes Partners: Female Lifestyle Physical activity Days per week: Not on file Minutes per session: Not on file Stress: Not on file Relationships Social connections Talks on phone: Not on file Gets together: Not on file Attends mosque service: Not on file Active member of club or organization: Not on file Attends meetings of clubs or organizations: Not on file Relationship status: Not on file Intimate partner violence Fear of current or ex partner: Not [...] day. Rinse mouth daily. 14 Each 3 Cetirizine HCl (ZYRTEC ALLERGY) 10 MG Capsule Take 1 Cap by mouth daily. 30 Cap 5 triamcinolone acetonide (ARISTOCORT) 0.1 % ointment Apply topically to affected area. As directed 4 BENADRYL 25 MG PO CAPS 1 or 2 pills by mouth 4 times a day as needed for itching or allergies 50 Cap 1 Results for orders placed or performed in visit on 05/30/13 LIPID PANEL WITH DIRECT LDL IF TG ABOVE 400 MG/DL Result Value Ref Range HOURS FASTING PATIENT NOT FASTING hours Triglycerides 99 <200 mg/dL Cholesterol 159 <200 mg/dL HDL Cholesterol 59 >39 mg/dL Cholesterol-HDL Ratio 2.7 LDL Cholesterol 80 0 - 129 mg/dL LDL Cholesterol (Direct Measure) NOT APPLICABLE 0 - 100 mg/dL Results for orders placed or performed in [...] 10 - 50 U/L O: Blood pressure 124/74, pulse 72, temperature 36.2 C (97.2 F), temperature source Tympanic, resp. rate 16, height 1.727 m (5' 8"), weight 71.9 kg (158 lb 8 oz). General appearance: well developed, well nourished and in no acute distress. Head normocephalic andatraumatic. No facial asymmetry. Eye exam; PEERLA, EOMI. No scleral icterus or nystagmus. Conjunctiva are pink and not injected. Oropharynx: no exudate, no pharyngeal inflammation or post nasal drip.The palate is free of lesions and the uvula is taiwo. Trachea is in the midline. Neck supple with no adenopathy or thyromegaly. No carotid bruits. Chest expands equally and is symmetrical with normalAP diameter. Lungs clear, with no wheezes, rales, or rhonchi. Heart: S1 and S2 normal. PMI not obviously displaced. Heart regular, no murmurs, gallops, clicks or rubs. No CVA tenderness. No calf swell ing or tenderness. No pedal edema. No skin rashes. He has a large healing skin tear on the right elbow when he scraped it against the doorway. Extremities unremarkable. A: Mild persistent asthma without complication (Primary) - Fluticasone-Salmeterol 250-50 MCG/DOSE Inhalation Aerosol Powder Breath Activated (Advair Diskus); Inhale 1 Puff by mouth 2 times a day. Rinse mouth daily. Need for prophylactic vaccination and inoculation against influenza - INFLUENZA VACC, QUAD, HIGH DOSE (FLUZONE HD) Intrinsic eczema RTO 1 year documented in this encounter Nursing Notes * Violetta Hernandez LPN - 07/15/2021 8:15 AM EDT Immunization Administration Documentation Time Out Procedure Performed: Yes Patient Identified (Ask Name/Date of ): Yes Does the patient have a fever greater than 101 degrees today? No Patient allergic to latex? No VFC Stock: No Immunization(s) verified: Yes, Immunization Name: Flu, VIS Sheet(s) given: Yes Verified Side and Site: Yes Verified Shot(s) with Parent(s)/Patient: Yes * Violetta Hernandez LPN - 07/15/2021 8:01 AM EDT 1 year check Bumped right forearm. Scabbed documented in this encounter Plan of Treatment Upcoming Encounters Date Type Specialty Care Team Description 07/16/2022 Office Visit Family Medicine Pepito Arevalo MD [address] [place] [address] [place] [address] Health Maintenance Due Date Last Done Comments DTaP,Tdap,and Td Vaccines (1 - Tdap) 1954 Zoster Vaccines (2 of 3) 12/10/2012 10/15/2012 *DEPRESSION SCREENING,ANNUAL FOR PTS 12 AND OVER 07/13/2021 DIABETES SCREEN EVERY 3 YRS-AGE 45 AND ABOVE 02/28/2022 02/28/2019, 05/30/2013 Pneumococcal Vaccine: 65+ Years Completed 07/09/2016, 09/07/2012 COVID-19 Vaccine Completed 01/07/2021, 12/10/2020 Influenza Vaccine (FLU shot) Completed , 07/11/2020, 07/11/2019, Additional history exists MENINGOCOCCAL (MENACTRA/MENVEO) Aged Out No longer eligible based on patient's age to complete this topic documented as of this encounter Implants Not on filedocumented as of this encounter Visit Diagnoses Diagnosis Mild persistent asthma without complication- Primary Unspecified asthma Need for prophylactic vaccination and inoculation against influenza Intrinsic eczema documented in this encounter Advance Directives Documents on File Type Date Recorded Patient City Council Member Expl anation Advanced Directive service a je default Advanced Directive service a je default Advanced Directive service a je default Advanced Directive Advanced Directive Advanced Directive Advanced Directive Advanced Directive Advanced Directive Advanced Directive
--- OUTSIDE RECORDS SUMMARY | 2023-08-10 05:22 | External Medical Summary | Summary of Care ---
Author Name Unknown Organization [place] [address] Phone Care Team Providers Care Dumpster Operator Name Role Phone Pepito Arevalo MD Primary Care Provider [phone] Reason for Visit * Reason Comments Previsit Planning Encounter Details Date Type Department Care Team Description 10/13/2017 Telephone Internal Medicine [address] [address] Pepito Arevalo MD [address] [place] [address] [place] [phone] Previsit Planning Allergies Active Allergy Reactions Severity [...] encounter Miscellaneous Notes * Telephone Encounter - Karli Dinero LPN - 10/13/2017 12:05 PM EST Outreach action taken: Contacted: unable to reach line busy in this encounter Plan of Treatment Upcoming Encounters Date Type Specialty Care Team Description 07/11/2018 Office Visit Internal Medicine Pepito Arevalo MD [address] [place] [address] [place] [phone] Health Maintenance Due Date Last Done Comments [...] Phone Address MEDICARE MEDICARE A AND B [id number] Medicare [place], [place] MEDICARE SUPPLEMENT SECURITY 65 [id number] [address] [place] [address] [facility] [id number] as of this encounter
--- OUTSIDE RECORDS SUMMARY | 2023-08-10 05:22 | External Medical Summary | Summary of Care ---
Author Name Unknown Organization [place] [address] Care Team Providers Care Alcohol And Drug Counselor Name Role Phone Pepito Arevalo MD Primary Care Provider Reason for Visit * Reason Comments Status Check Encounter Details Date Type Department Care Team Description 12/23/2018 Office Visit Internal Medicine [address] [address] Pepito Arevalo MD [address] [place] [address] Allergic dermatitis* Allergies Active Allergy Reactions Severity Noted Date Comments Environmental 09/03/2005 documented as of this encounter (statuses as of 12/23/2018) Medications Medication Sig Dispensed Refills Start Date End Date Status BENADRYL 25 MG PO CAPS 1 or 2 pills by mouth 4 times a day as needed for itching or allergies 50 Cap 1 06/27/2013 Active triamcinolone acetonide (ARISTOCORT) 0.1 % ointment Apply topically to affected area. As directed 4 03/11/2015 Active fluticasone-salme terol (ADVAIR DISKUS) 250-50 MCG/DOSE inhalerIndication s:Mild persistent asthma without complication Inhale 1 Puff by mouth 2 times a day. Rinse mouth daily. 1 Disk Dosing Unit 5 07/11/2018 Active Cetirizine HCl (ZYRTEC ALLERGY) 10 MG CapsuleIndication s:Allergic dermatitis Take 1 Cap by mouth daily. 30 Cap 5 12/23/2018 Active chlorHEXIDINE (PERIOGARD) 0.12 % solution RINSE 1 TO 2 TIMES DAILY DIRECTED 4 06/25/2017 9 Discontinued Hospital, Clinic, or Other Facility Administered Medication Ordered Dose Route Frequency Start Date End Date Status triamcinolone acetonide (KENALOG) 40 MG/ML inj 40 mgIndications:Allergic dermatitis 40 mg IM ONCE 12/23/2018 12/23/2018 Ended documented as of this encounter (statuses as of 12/23/2018) Active Problems Problem Noted Date Mild persistent asthma without complicat ion 02/26/2016 Allergic rhinitis 09/07/2012 ADVANCE DIRECTIVE INFORMATION 09/03/2005 Overview: No, Advance Directive brochure offered , patient declined. documented as of this encounter (statuses as of 12/23/2018) Resolved Problems Problem Noted Date Resolved Date Senile cataract of left eye 09/10/201506/2016 NO KNOWN PROBLEMS 07/05/2009 09/07/2012 documented as of this encounter (statuses as of 12/23/2018) Immunizations Name Dates Previously Given Next Due [...] Vital Sign Reading Time Taken Blood Pressure 142/70 12/23/2018 11:35 AM EST Pulse 80 12/23/2018 11:35 AM EST Temperature 36.3 C (97.4 F) 12/23/2018 1 1:35 AM EST Respiratory Rate 12 12/23/2018 11:3 5 AM EST Oxygen Saturation - - Inhaled Oxygen Concentration - - Weight 73 kg (161 lb) 12/23/2018 11:35 AM EST Height - - Body Mass Index 23.1 12/23/2018 11:35 AM EST documented in this encounter Progress Notes * Pepito Arevalo MD - 12/23/2018 11:50 AM EST Vikram is here because of chronically itchy skin and a rash. Dr Jason retired and sent him to [place] for derm to watch the basal cells and we have nothing on that. He says his skin is always itchy and derm has vaseline and lotions and ointments and told him to use a humidifier in the bedroom. Nothing is helping. 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 08/25/13 moderate obstructive airways disease, with improvement after bronchodilator Review of patient's allergies indicates: Allergen Reactions Environmental Social History Socioeconomic History Marital status: Spouse name: Not on file Number of children: 1 Years of education: Not on file Highest education level: Not on file Social Needs Financial resource strain: Not on file Food insecurity - worry: Not on file Food insecurity - inability: Not on file Transportation needs - medical: Not on file Transportation needs - non-medical: Not on file Occupational History Employer: [employer] 425 Tobacco Use Smoking status: Former Smoker Packs/day: 0.50 Years: 25.00 Pack years: 12.50 Types: Cigarettes Last attempt to quit: 11/01/2000 Years since quittin.1 Smokeless tobacco: Never Used Substance and Sexual Activity Alcohol use: Yes Comment: several martinis a day. Cut way back May 2013 Drug use: No Sexual activity: Yes Partners: Female Other Topics Concern Not on file Social History Narrative Not on file O: Blood pressure 142/70, pulse 80, temperature 36.3 C (97.4 F), resp. rate 12, weight 73 kg (161 lb). He has red skin and areas that even seem edematous.. He has scratched open a couple of areas. This is not a papular rash, but just broad areas of erythema Mostly on arms A: L23.9 Allergic dermatitis (primary encounter diagnosis) Plan: Triamcinolone acetonide 40 mg/ml ij susp Cetirizine hcl 10 mg po caps Sig:Take 1 cap by mouth daily. RTO prn documented in this encounter Nursing Notes * Dayanna Adame RN - 12/23/2018 11:52 AM EST Pre-Administration Time Out Procedure Performed: Yes Patient Identified (Ask Name/Date of ): Yes Does the patient have a fever greater than 101 degrees today? No Patient allergic to latex? No Has the patient ever fainted after receiving an injection? No VFC Stock: No Injection(s) verified: Yes, Injection Name: kenalog Verified Side and Site: Yes Verified Shot(s) with Parent(s)/Patient: Yes * Dayanna Adame RN - 12/23/2018 11:35 AM EST Has generalized itchy. Has been worse over the past several weeks Uses vaseline as per cover stitch machine operator recommendation and triamcinolone ointment. documented in this encounter Plan of Treatment Upcoming Encounters Date Type Specialty Care Team Description 07/11/2019 Office Visit Internal Medicine Pepito Arevalo MD [address] [place] [address] [place] [address] Health Maintenance Due Date [...] as of this encounter Visit Diagnoses Diagnosis Allergic dermatitis- Primary Contact dermatitis and other eczema, due to unspecified cause documented in this encounter Administered Medications Inactive Administered Medications - up to 3 most recent administrations Medication Order MAR Action Action Date Dose Rate Site triamcinolone acetonide (KENALOG) 40 MG/ML inj 40 mg 40 mg, Intramuscular, ONCE, Wed12/23/18 at 1230, For 1 dose Given 12/23/2018 11:53 AM EST 40 mg Dorsogluteal Left documented in this encounter Advance Directives Patient has advance care planning documents on file. For more information, please contact: [place] [address]
--- OUTSIDE RECORDS SUMMARY | 2023-08-10 05:22 | External Medical Summary | Summary of Care ---
Author Name Unknown Organization [place] [address] Care Team Providers Care Service Desk Associate Name Role Phone Pepito Arevalo MD Primary Care Provider [phone] Reason for Visit * Reason Onset Date Comments Medication Refill 04/30/2022 Encounter Details Date Type Department Care Team Description 04/30/2022 Telephone Family Medicine [address] [phone] Pepito Arevalo MD [address] [place] [address] Medication Refill Allergies Active Allergy Reactions Severity Noted Date Comments Environmental 09/03/2005 documented as of this encounter (statuses as of 04/30/2022) Medications Medication Sig Dispensed Refills Start Date [...] Puff before bedtime. 180 Each 1 04/30/2022 Active Fluticasone-Salmet alphonso 250-50 MCG/DOSE Inhalation Aerosol Powder Breath Activated (Advair Diskus)Indications :Mild persistent asthma without complication Inhale 1 Puff by mouth 2 times a day. Rinse mouth daily. 14 Each 3 07/15/2021 04/30/2022 Discontinued (Formulary/C ost) documented as of this encounter (statuses as of 04/30/2022) Active Problems Problem Noted Date Mild persistent asthma without complicat ion 02/26/2016 Seasonal allergic rhinitis due to pollen 09/07/2012 ADVANCE DIRECTIVE INFORMATION 09/03/2005 Overview: No, Advance Directive brochure offered , patient declined. Intrinsic eczema documented as of this encounter (statuses as of 04/30/2022) Resolved Problems Problem Noted Date Resolved Date Senile cataract of left eye 09/10/201506/2016 NO KNOWN PROBLEMS 07/05/2009 09/07/2012 documented as of this encounter (statuses as of 04/30/2022) Immunizations Name Administration Dates Next Due COVID-19 [...] on one occasion? Not asked Comment: several deliais sara tavares ay. Cut way back May 2013 05/30/2013 [...] encounter Miscellaneous Notes * Telephone Encounter - Sun Kris, scientific photographer - 04/30/2022 2:04 PM EDT Would not let me pend drug Did you pend patient's preferred pharmacy and medication before forwarding?no Pharmacy: [id number] [place] Advair Diskus 250-50mcg/dose Inhale 1 Puff by mouth 2 times a day. Rinse mouth daily., Disp-14 Each, R-3 Last Visit: 07/15/2021 (in office), Visit date not found (telemedicine) Next Visit: 07/16/2022 If no future appointments scheduled, and last appointment is greater than a year ago, please schedule patient for a follow-up appointment Last date the medication was ordered: 07/15/21 Is this request for a controlled substance?No Urine Drug Screen:No results found for this or any previous visit. Patient Phone Numbers Labs: Lab Results Component Value Date/Time CREAT 1.03 02/28/2019 12:00 AM CREAT 0.9 05/30/2013 10:35 AM POTASSIUM 4.4 02/28/2019 12:00 AM POTASSIUM 4.2 05/30/2013 10:35 AM LDLCALC 80 05/30/2013 10:35 AM LDLDIRECT NOT APPLICABLE 05/30/2013 10:35 AM ALT 14 05/30/2013 10:35 AM documented in this encounter Plan of Treatment Upcoming Encounters Date Type Specialty Care Team Description 07/16/2022 Office Visit Family Medicine Pepito Arevalo MD [address] [place] [address] [place] [phone] Health Maintenance Due Date Last Done Comments DTaP,Tdap,and Td Vaccines (1 - Tdap) 1954 Zoster Vaccines (2 of 3) 12/10/2012 10/15/2012 COVID-19 Vaccine (3 - Booster for Moderna series) 06/09/2021 01/07/2021, 12/10/2020 Depression Screening, Annual for Pts 12 and Over 07/11/2021 07/11/2020 DIABETES SCREEN EVERY 3 YRS-AGE 45 AND ABOVE 02/28/2022 02/28/2019, 05/30/2013 Pneumococcal Vaccine: 65+ Years Completed 07/09/2016, 09/07/2012 Influenza Vaccine (FLU shot) Completed , 07/11/2020, 07/11/2019, Additional history exists GARDASIL-HPV IMMUNIZATION SERIES Aged Out No longer eligible based on patient's age to complete this topic MENINGOCOCCAL (MENACTRA/MENVEO) Aged Out No longer eligible based on patient's age to complete this topic documented as of this encounter Implants Not on filedocumented as of this encounter Advance Directives Documents on File Type Date Recorded Patient Conveyor System Dispatcher Expl anation Advanced Directive service a je default Advanced Directive service a je default Advanced Directive service a je default Advanced Directive Advanced Directive Advanced Directive Advanced Directive Advanced Directive Advanced Directive Advanced Directive Care Teams Service Desk Associate Relationship Specialty Start Date End Date Pepito Arevalo MD PCP - General 07/05/09 documented as of this encounter
--- OUTSIDE RECORDS SUMMARY | 2023-08-10 05:22 | External Medical Summary | Summary of Care ---
Author Name Unknown Organization [place] [address] Care Team Providers Care Hydraulic Rock Drill Operator Name Role Phone Pepito Arevalo MD Primary Care Provider [phone] Encounter Details Date Type Department Care Team Description 03/07/2019 Orders Only Internal Medicine [address] [address] Pepito Arevalo MD [address] [place] [address] [place] [address] Allergies Active Allergy Reactions Severity Noted Date Comments Environmental 09/03/2005 documented as of this encounter (statuses as of 03/07/2019) Medications Medication Sig Dispensed Refills Start Date [...] as of this encounter (statuses as of 03/07/2019) Active Problems Problem Noted Date Mild persistent asthma without complicat ion 02/26/2016 Allergic rhinitis 09/07/2012 ADVANCE DIRECTIVE INFORMATION 09/03/2005 Overview: No, Advance Directive brochure offered , patient declined. documented as of this encounter (statuses as of 03/07/2019) Resolved Problems Problem Noted Date Resolved Date Senile cataract of left eye 09/10/2015 09/0 06/2016 NO KNOWN PROBLEMS 07/05/2009 09/07/2012 documented as of this encounter (statuses as of 03/07/2019) Immunizations Name Dates Previously Given Next Due [...] Travel End documented as of this encounter Plan of Treatment Upcoming Encounters Date Type Specialty Care Team Description 07/11/2019 Office Visit Internal Medicine Pepito Arevalo MD [address] [place] [address] [place] [address] Health Maintenance Due Date [...] Not on filedocumented as of this encounter Procedures Procedure Name Priority Date/Time Associated Diagnosis Comments CHEMISTRY-OUTSIDE Routine 02/28/2019 documented in this encounter Results * CHEMISTRY-OUTSIDE (02/28/2019) CREATININE-OUTSIDE LAB 1.03 0.8 - 1.5 MG/DL OU TSIDE LAB (SEE SCANNED REPORT) GFR ESTIMATED-OUTSIDE LAB 67 ML/MIN 1.73 M2 OUTSIDE LAB (SEE SCANNED REPORT) POTASSIUM-OUTSIDE LAB 4.4 3.6 - 5.0 MMOL/L OU TSIDE LAB (SEE SCANNED REPORT) GLUCOSE-OUTSIDE LAB 101(A) 70 - 99 MG/DL OUTSIDE LAB (SEE SCANNED REPORT) HOURS FASTING OUTSIDE LAB (S EE SCANNED REPORT) TRIGLYCERIDES-OUTSIDE LAB OU TSIDE LAB (SEE SCANNED REPORT) CHOLESTEROL-OUTSIDE LAB OUTS BUCK LAB (SEE SCANNED REPORT) HDL-OUTSIDE LAB OUTSIDE LAB (SEE SCANNED REPORT) CHOL/HDL RATIO-OUTSIDE LAB O UTSIDE LAB (SEE SCANNED REPORT) LDL (CALCULATED)-OUTSIDE LAB OUTSIDE LAB (SEE SCANNED REPORT) LDL (DIRECT MEASURE)-OUTSIDE LAB OUTSIDE LAB (SEE SCANNED REPORT) HEMOGLOBIN, C2P-FSONKTH LAB OUTSIDE LAB (SEE SCANNED REPORT) PHOSPHORUS-OUTSIDE LAB OUTSI DE LAB (SEE SCANNED REPORT) PTH-OUTSIDE LAB OUTSIDE LAB (SEE SCANNED REPORT) MICROALBUMIN RATIO-OUTSIDE LAB OUTSIDE LAB (SEE SCANNED REPORT) PROTEIN, UA-OUTSIDE LAB OUTS BUCK LAB (SEE SCANNED REPORT) HEMOGLOBIN-OUTSIDE LAB 13.6(A) 14.0 - 16.8 G/DL O UTSIDE LAB (SEE SCANNED REPORT) CHEMISTRY COMMENT-OUTSIDE LAB Comment:CBCD, CMP, SERUM PROTEIN - SEE SCAN OUTSIDE LAB (SEE SCANNED REPORT) Narrative Performed At Performing Organization Address City/State/Zipcod e Phone Number OUTSIDE LAB (SEE SCANNED REPORT) documented in this encounter Advance Directives Patient has advance care planning documents on file. For more information, please contact: [place] [address]
--- OUTSIDE RECORDS SUMMARY | 2023-08-10 05:22 | External Medical Summary | Summary of Care ---
Author Name Unknown Organization [place] [address] Phone Care Team Providers Care Furniture Repairer Name Role Phone Pepito Arevalo MD Primary Care Provider Reason for Visit * Reason Comments STATUS CHECK MEDICATION ADMINISTRATION Flu and/or Pne umo Inj Encounter Details Date Type Department Care Team Description 07/11/2018 Office Visit Internal Medicine [address] [address] Pepito Arevalo MD [address] [place] [address] Mild persistent asthma without complication*;Need for prophylactic vaccination and inoculation against influenza;Seasonal allergic rhinitis due to other allergic trigger Allergies Active Allergy Reactions Severity Noted Date [...] 2 TIMES DAILY DIRECTED 4 06/25/2017 Active fluticasone-salmet alphonso (ADVAIR DISKUS) 250-50 MCG/DOSE inhalerIndications :Mild persistent asthma without complication Inhale 1 Puff by mouth 2 times a day. Rinse mouth daily. 1 Disk Dosing Unit 5 07/11/2018 Active fluticasone-salmet alphonso (ADVAIR DISKUS) 250-50 MCG/DOSE inhalerIndications :Mild persistent asthma without complication Inhale 1 Puff by mouth 2 times a day. Rinse mouth daily. 1 Disk Dosing Unit 5 07/09/2017 8 Discontinued as of this encounter Active Problems [...] Vital Sign Reading Time Taken Blood Pressure 126/62 07/11/2018 8:41 AM EDT Pulse 88 07/11/2018 8:41 AM EDT Temperature 36.7 C (98.1 F) 07/11/2018 8 :41 AM EDT Respiratory Rate 16 07/11/2018 8:41 AM EDT Oxygen Saturation - - Inhaled Oxygen Concentration - - Weight 76.2 kg (168 lb) 07/11/2018 8:41 AM EDT Height 177.8 cm (5' 10") 07/11/2018 8:4 1 AM EDT Body Mass Index 24.11 07/11/2018 8:41 AM EDT in this encounter Progress Notes * Pepito Arevalo MD - 07/11/2018 8:51 AM EDT Formatting of this note may be different from the original. Vikram for the most part is feeling pretty good. He is so happy with the Advair, uses it daily, and for the most part is not bothered by weather. No complaints of headache, trouble with vision or hearing. The left ear has been bad for 30 years, but the right is good. His vision is 20/20. He did havesome retinal problems and Dr Harry had him on drops for a while but he is good now. Eating well, with no bowel or bladder complaints. Denies nausea, vomiting, or diarrhea. Denies fevers, chills or sweats. Denies chest pain or palpitations. Denies shortness of breath, PND, or orthopnea. No skinrashes or breakdown. No changes in mentation. The rest of a 10 point review of systems is negative. Health Maintenance addressed. Flu shot today. Asthma control plan given Past Medical History: Diagnosis Date Allergic rhinitis [...] allergies indicates: Allergen Reactions Environmental Social History Social History Marital status: Spouse [...] Concern Not on file Social History Narrative Current Outpatient Prescriptions Medication Sig Dispense Refill chlorHEXIDINE (PERIOGARD) 0.12 % solution RINSE 1 [...] Pneumococcal Polyvalent Vacc (Pneumovax) 09/07/2012 Seasonal Influenza, Quadrivalent, No Preserve, IM 07/09/2016, 07/09/2017 Seasonal Influenza, Trivalent, with Preserve, 3yr & Above, Split 08/08/2009, 08/05/2010, 08/05/2011, 08/02/2012, 07/27/2013, 07/14/2014, 07/11/2015 Varicella Zoster Vaccine (Adult) 10/15/2012 O: Blood pressure 126/62, pulse 88, temperature 36.7 C (98.1 F), resp. rate 16, height 1.778 m (5' 10"), weight 76.2 kg (168 lb). General appearance: well developed, well nourished and [...] or thyromegaly. No carotid bruits. Chest expands equally. Lungs clear, with no wheezes, rales, or rhonchi. Heart: S1 and S2 normal. PMI not obviously displaced. Heart regular, no murmurs, gallops, clicks or rubs. No CVA tenderness. No calf swelling or tenderness. No pedal edema. No skin rashes. Extremities unremarkable. A: J45.30 Mild persistent asthma without complication (primary encounter diagnosis) Plan: Fluticasone-salmeterol 250-50 mcg/dose in aepb Sig:Inhale 1 puff by mouth 2 times a day. rinse mouth daily. Z23 Need for prophylactic vaccination and inoculation against influenza Plan: Influenza vacc, quad, pf, 6 months & up, 0.5 ml, im J30.89 Seasonal allergic rhinitis due to other allergic trigger Follow up: Return in about 1 year (around 07/11/2019). * Dayanna Adame RN - 07/11/2018 8:43 AM EDT PRE - ADMINISTRATION DOCUMENTATION Are you allergic to latex? No Are you experiencing any cold symptoms or fever? No Have you had Guillain-[place] Syndrome (an illness that causes paralysis)? No Have you had the flu shot in the past? YES Have you ever had a reaction to the flu shot? No Dayanna Adame RN, 07/11/2018 8:43 AM Immunization Administration Documentation Time Out Procedure Performed: Yes Patient Identified (Ask Name/Date of ): Yes Does the patient have a fever greater than 101 degrees today? No Patient allergic to latex? No VFC Stock: No Immunization(s) verified: Yes, Immunization Name: Flu, VIS Sheet(s) given: No Verified Side and Site: Yes Verified Shot(s) with Parent(s)/Patient: Yes in this encounter Nursing Notes * Dayanna Adame RN - 07/11/2018 8:41 AM EDT Yearly check. Is short of breath. in this encounter Plan of Treatment Upcoming Encounters Date Type Specialty Care Team Description 07/11/2019 Office Visit Internal Medicine Pepito Arevalo MD [address] [place] [address] [place] [address] Health Maintenance Due Date Last Done Comments DTaP,Tdap,and Td Vaccines (1 - Tdap) 1954 Zoster Vaccines HMT (2 of 3) 12/10/2012 10/15/2012 DIABETES SCREEN EVERY 3 YRS- AGE 45 AND ABOVE 05/30/2016 05/30/2013 *ASTHMA ACTION PLAN-ADULT YEARLY 02/28/2017 *ASTHMA CONTROL TEST IN LAST 90 DAYS-ADULT 10/10/2017 Influenza Vaccine (FLU shot) (#1) 2018 07/09/2017, 07/09/2016, 07/11/2015, Additional history exists *DEPRESSION SCREENING, GISELLE Magdaleno FOR PTS 18 AND OVER 07/11/2018 PNEUMOCOCCAL ADULT 65 YRS AND OVER Completed 2015, 09/07/2012 as of this encounter Implants Not on fileas of this encounter Visit Diagnoses Diagnosis Mild persistent asthma witho ut complication - Primary Unspecified asthma Need for prophylactic vaccin ation and inoculation against influenza Seasonal allergic rhinitis d ue to other allergic trigger in this encounter
--- OUTSIDE RECORDS SUMMARY | 2023-08-10 05:22 | External Medical Summary | Summary of Care ---
Author Name Unknown Organization [place] [address] Care Team Providers Care Finance Professional Name Role Phone Pepito Arevalo MD Primary Care Provider Reason for Visit * Reason Comments Re-Check Medication Administration Flu and/or Pne umo Inj Encounter Details Date Type Department Care Team Description 07/11/2020 Office Visit Internal Medicine [address] [phone] Pepito Arevalo MD [address] [place] [address] Mild persistent asthma without complication*; Need [...] level: Not on file Occupational History Employer: [employer] Social Needs Financial resource strain: Not [...] file Gets together: Not on file Attends congregational service: Not on file Active member of [...] symptoms or fever? 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
--- OUTSIDE RECORDS SUMMARY | 2023-08-10 05:22 | External Medical Summary ---
Author Name Unknown Organization K08:[facility] [address] [place] [address] Laboratory Report Ordering Provider Test Date Status BENITO OROURKE MD 05/30/2013 10:35:00-0400 Final Obs # Observation Date Value ABNL Reference Status Pe rforming Location 1 WBC 05/30/2013 11:130400 10.00 4.00-10.80 K/uL Final 2 RBC 05/30/2013 11:0400 5.33 H 4.50-5.25 M/uL Final 3 HGB 05/30/2013 11:0400 16.0 14.0-16.5 g/dL Final 4 HCT 05/30/2013 11:0400 47.3 H 40.0-47.0 % Final 5 MCV 05/30/2013 11:0400 88.7 82.0-99.5 fL Final 6 MCH 05/30/2013 11:0400 30.0 27.0-34.0 pg Final 7 MCHC 05/30/2013 11:0400 33.8 32.0-36.0 g/dL Final 8 RDW 05/30/2013 11:0400 13.6 11.5-15.5 % Final 9 PLT 05/30/2013 11:0 310 140-400 K/uL Final 10 MPV 05/30/2013 11:130400 9.9 6.6-11.1 fL Final 11 diff type 05/30/2013 11:130400 SCAN DIFF Final 12 Segs 05/30/2013 11:150400 64 40-75 % Final 13 Lymphocytes 05/30/2013 11:15-0400 18 18-42 % Final 14 Monos 05/30/2013 11:150400 8 1-11 % Final 15 Eosinophils 05/30/2013 11:150400 9 H 0-6 % Final 16 Basos 05/30/2013 11:150400 1 0-2 % Final 17 Segmented Neutrophils, Abs 05/30/2013 11:150400 6.40 1.8-7.7 K/uL Final 18 Lymphs, Abs 05/30/2013 11:150400 1.80 1.0-4.8 K/uL Final 19 Monos, Abs 05/30/2013 11:150400 0.80 0.0-1.1 K/uL Final 20 Eos, Abs 05/30/2013 11:150400 0.90 H 0.0-0.7 K/uL Final 21 Basos, Abs 05/30/2013 11:150400 0.10 0.0-0.2 K/uL Final
--- OUTSIDE RECORDS SUMMARY | 2023-08-10 05:22 | External Medical Summary ---
Author Name Unknown Organization K01[facility], [address] [address] Laboratory Report Ordering Provider Test Date Status BENITO OROURKE MD 05/30/2013 10:35:00-0400 Final Obs # Observation Date Value ABNL Reference Status Pe rforming Location 1 CRP, High-sensitivity 05/30/2013 21:28-0400 2.23 0.00-5.00 mg/L Final CARDIOVASCULAR DISEASE RISK ASSESSMENT (RELATIVE RISK) <1.0 mg/L LOW 1.0-3.0 mg/L AVERAGE >3.0 mg/L HIGH THIS TABLE MAY NOT APPLY IN CERTAIN INFLAMMATORY CONDITIONS
--- OUTSIDE RECORDS SUMMARY | 2023-08-14 07:06 | External Medical Summary | Summary of Care ---
Author Name Unknown Organization [place] [address] Care Team Providers Care Wood Chopper Name Role Phone Pepito Arevalo MD Primary Care Provider Reason for Visit * Reason Comments Previsit Planning Encounter Details Date Type Department Care Team Description 01/18/2019 Telephone Internal Medicine [address] [address] Pepito Arevalo MD [address] [place] [address] [place] [address] Previsit Planning Allergies Active Allergy Reactions [...] Office Visit Internal Medicine Pepito Arevalo MD [address] [place] [address] [place] [address] Health Maintenance Due Date [...] information, please contact: [place] [phone]
--- OUTSIDE RECORDS SUMMARY | 2023-08-14 07:06 | External Medical Summary ---
Author Name Unknown Organization K08:[facility] [place] [place] [address] Laboratory Report Ordering Provider Test Date Status [...]
--- OUTSIDE RECORDS SUMMARY | 2023-08-14 07:06 | External Medical Summary | Summary of Care ---
Author Name Unknown Organization [place] [address] Care Team Providers Care After School Counselor Name Role Phone Pepito Arevalo MD Primary Care Provider [phone] Reason for Visit * Reason Comments Status Check Encounter Details Date Type Department Care Team Description 12/23/2018 Office Visit Internal Medicine [address] [address] Pepito Arevalo MD [address] [place] [address] Allergic dermatitis* Allergies Active Allergy Reactions [...] Dr Jason retired and sent him to [facility] for derm to watch the basal cells [...] non-medical: Not on file Occupational History Employer: [employer] 425 Tobacco Use Smoking status: Former Smoker [...] past several weeks Uses vaseline as per pst specialist recommendation and triamcinolone ointment. documented in this encounter Plan of Treatment Upcoming Encounters Date Type Specialty Care Team Description 07/11/2019 Office Visit Internal Medicine Pepito Arevalo MD [address] [place] [address] [place] [address] Health Maintenance Due Date [...] information, please contact: [place] [address]
--- OUTSIDE RECORDS SUMMARY | 2023-08-14 07:06 | External Medical Summary | Summary of Care ---
Author Name Unknown Organization [place] [address] Phone Care Team Providers Care Railroad Signal Technician Name Role Phone Pepito Arevalo MD Primary Care Provider [phone] Reason for Visit * Reason Comments Acute pt reports lump on b ack of left hand x 10 days Encounter Details Date Type Department Care Team Description 04/11/2018 Office Visit Internal Medicine [address] [address] Brissa Rizzo PA-C [address] [place] [address] [place] [address] [phone] Ganglion cyst* Allergies Active Allergy Reactions Severity [...] PA-C in this encounter Nursing Notes * GainesShorty ruiz LPN - 04/11/2018 3:21 PM EDT Formatting of this note may be different from the original. Chief Complaint Patient presents with Acute pt reports lump on back of left hand x 10 days in this encounter Plan of Treatment Upcoming Encounters Date Type Specialty Care Team Description 04/11/2018 Office Visit Internal Medicine Brissa Rizoz PA-C [address] [place] [address] [place] [address] [phone] Ganglion cyst* 04/11/2018 Imaging Radiology Arrived 07/11/2018 Office Visit Internal Medicine Pepito Arevalo MD [address] [place] [address] [place] [address] [phone] Scheduled Tests Name Priority Associated Diagnoses Order [...]
--- OUTSIDE RECORDS SUMMARY | 2023-08-14 07:06 | External Medical Summary ---
Author Name Unknown Organization [facility] [address] [address] Laboratory Report Ordering Provider Test Date Status [...]
--- OUTSIDE RECORDS SUMMARY | 2023-08-14 07:06 | External Medical Summary | Summary of Care ---
Author Name Unknown Organization [place] [address] Care Team Providers Care Boat Deckhand Name Role Phone Pepito Arevalo MD Primary Care Provider [phone] Reason for Visit * Reason Onset Date Comments Medication Refill 04/30/2022 Encounter Details Date Type Department Care Team Description 04/30/2022 Telephone Family Medicine [address] [phone] Pepito Arevalo MD [address] [place] [address] Medication Refill Allergies Active Allergy Reactions [...] Notes * Telephone Encounter - Sun Kris, it instructor - 04/30/2022 2:04 PM EDT Would not let me pend drug Did you pend patient's preferred pharmacy and medication before forwarding?no Pharmacy: [id number] [place] Advair Diskus 250-50mcg/dose Inhale 1 Puff [...] Office Visit Family Medicine Pepito Arevalo MD [address] [place] [address] [place] [address] Health Maintenance Due Date Last Done Comments [...] Documents on File Type Date Recorded 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
--- OUTSIDE RECORDS SUMMARY | 2023-08-14 07:06 | External Medical Summary | Summary of Care ---
Author Name Unknown Organization [place] [address] Care Team Providers Care Latin American Studies Professor Name Role Phone Pepito Arevalo MD Primary Care Provider [phone] Reason for Visit * Reason Comments Health Maintenance Encounter Details Date Type Department Care Team Description 07/15/2020 Telephone Internal Medicine [address] [address] Pepito Arevalo MD [address] [place] [address] [place] [address] Health Maintenance Allergies Active Allergy Reactions [...] Office Visit Internal Medicine Pepito Arevalo MD [address] [place] [address] [place] [address] Health Maintenance Due Date [...] Documents on File Type Date Recorded Patient Wrecker Driver Expl anation Advanced Directive service a je default Advanced Directive service a je default Advanced Directive service a je default Advanced Directive Advanced Directive Advanced Directive Advanced Directive Advanced Directive
--- OUTSIDE RECORDS SUMMARY | 2023-08-14 07:06 | External Medical Summary | Summary of Care ---
Author Name Unknown Organization [place] [address] Phone Care Team Providers Care Motorman/Woman Name Role Phone Pepito Arevalo MD Primary Care Provider [phone] Reason for Visit * Reason Comments Previsit Planning Encounter Details Date Type Department Care Team Description 10/13/2017 Telephone Internal Medicine [address] [address] Pepito Arevalo MD [address] [place] [address] [place] [phone] Previsit Planning Allergies Active Allergy Reactions Severity [...] Visit Internal Medicine Pepito Arevalo MD [address] [place] [address] [place] [phone] Health Maintenance Due Date Last Done Comments [...] Phone Address MEDICARE MEDICARE A AND B [id number] Medicare [place], [place] MEDICARE SUPPLEMENT SECURITY [address] [id number] [address] [place] [address] [facility] [id number] as of this encounter
--- OUTSIDE RECORDS SUMMARY | 2023-08-14 07:06 | External Medical Summary ---
Author Name Unknown Organization K08:[facility] [place] [address] Laboratory Report Ordering Provider Test Date Status [...]
--- OUTSIDE RECORDS SUMMARY | 2023-08-14 07:06 | External Medical Summary | Summary of Care ---
Author Name Unknown Organization [place] [address] Care Team Providers Care Acetylene Cylinder Packing Mixer Name Role Phone Pepito Arevalo MD Primary Care Provider [phone] Encounter Details Date Type Department Care Team Description 03/07/2019 Orders Only Internal Medicine [address] [address] Pepito Arevalo MD [address] [place] [address] [place] [address] Allergies Active Allergy Reactions Severity Noted [...] Visit Internal Medicine Pepito Arevalo MD [address] [place] [address] [place] [address] Health Maintenance Due Date [...] LAB OUTSIDE LAB (SEE SCANNED REPORT) HEMOGLOBIN, [id number] LAB OUTSIDE LAB (SEE SCANNED REPORT) PHOSPHORUS-OUTSIDE [...] information, please contact: [place] [address]
--- OUTSIDE RECORDS SUMMARY | 2023-08-14 07:06 | External Medical Summary | Summary of Care ---
Author Name Unknown Organization [place] [address] Phone Care Team Providers Care Front Desk Assistant Name Role Phone Pepito Arevalo MD Primary Care Provider [phone] Reason for Visit * Reason Comments APPOINTMENT AWV Encounter Details Date Type Department Care Team Description 05/25/2017 Telephone Internal Medicine [address] [address] Pepito Arevalo MD [address] [place] [address] [place] [phone] APPOINTMENT (AWV) Allergies Active Allergy Reactions Severity [...] Office Visit Internal Medicine Pepito Arevalo MD [address] [place] [address] [place] [address] [phone] Health Maintenance Due Date Last Done Comments [...] Phone Address MEDICARE MEDICARE A AND B [id number] Medicare [place], [place] MEDICARE SUPPLEMENT SECURITY [address] [id number] [address] [place] [address] [employer] [place] [place] [id number] as of this encounter
--- OUTSIDE RECORDS SUMMARY | 2023-08-14 07:06 | External Medical Summary ---
Author Name Unknown Organization K01:[facility], [address] [id number] Laboratory Report Ordering Provider Test Date Status BENITO OROURKE MD 05/30/2013 10:35:00-0400 Final Obs # Observation Date Value ABNL Reference Status Pe rforming Location 1 Ammonia 05/30/2013 21:17-0400 16 L 17-47 umol/L Final
--- OUTSIDE RECORDS SUMMARY | 2023-08-14 07:06 | External Medical Summary | Summary of Care ---
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 He continues [...] level: Not on file Occupational History Employer: [employer] Tobacco Use Smoking status: Former Smoker Packs/day: [...] symptoms or fever? No Have you had Guillain-Hayden Syndrome (an illness that causes paralysis) within [...] Office Visit Family Medicine Pepito Arevalo MD [address] [place] [address] [place] [address] Health Maintenance Due Date Last Done Comments [...] Documents on File Type Date Recorded Patient Fabric Separator Operator Expl anation Advanced Directive service a je default Advanced Directive service a je default Advanced Directive service a je default Advanced Directive Advanced Directive Advanced Directive Advanced Directive Advanced Directive Advanced Directive Advanced Directive Advanced Directive Care Teams Service Now Developer Relationship Specialty Start Date End Date Pepito Arevalo MD PCP - General 07/05/09 documented as of this encounter
--- OUTSIDE RECORDS SUMMARY | 2023-08-14 07:06 | External Medical Summary | Summary of Care ---
Author Name Unknown Organization [place] [address] Care Team Providers Care Program Management Analyst Name Role Phone Pepito Arevalo MD Primary Care Provider Reason for Visit * Reason Onset Date Comments Re-Check Medication Administration 07/15/2021 Flu an d/or Pneumo Inj Encounter Details Date Type Department Care Team Description 07/15/2021 Office Visit [address] [phone] Pepito Arevalo MD [address] [place] [address] [place] [address] Mild persistent asthma without complication*; Need [...] another MOHS behind Left ear down in [place]. He is trouble getting up out of [...] level: Not on file Occupational History Employer: [employer] Social Needs Financial resource strain: Not on [...] file Gets together: Not on file Attends hindu service: Not on file Active member of [...] Office Visit Family Medicine Pepito Arevalo MD [address] [place] [address] [place] [address] Health Maintenance Due Date [...] Documents on File Type Date Recorded Patient Public Relations Representative Expl anation Advanced Directive service a je default Advanced Directive service a je default Advanced Directive service a je default Advanced Directive Advanced Directive Advanced Directive Advanced Directive Advanced Directive Advanced Directive Advanced Directive
--- OUTSIDE RECORDS SUMMARY | 2023-08-14 07:06 | External Medical Summary ---
Author Name Unknown Organization K08:[facility] [place] [address] [place] [address] Laboratory Report Ordering Provider Test Date Status [...]
--- OUTSIDE RECORDS SUMMARY | 2023-08-14 07:06 | External Medical Summary | Summary of Care ---
Author Name Unknown Organization [place] [address] Care Team Providers Care Paint Prep Technician Name Role Phone Pepito Arevalo MD Primary Care Provider [phone] Reason for Visit * Reason Comments Re-Check Medication Administration Flu and/or Pne umo Inj Encounter Details Date Type Department Care Team Description 07/11/2019 Office Visit Internal Medicine [address] [phone] Pepito Arevalo MD [address] [place] [address] Mild persistent asthma without complication*; Need [...] level: Not on file Occupational History Employer: [employer] Social Needs Financial resource strain: Not [...] file Gets together: Not on file Attends congregation service: Not on file Active member of [...] Office Visit Internal Medicine Pepito Arevalo MD [address] [place] [address] [place] S[place] [phone] Health Maintenance Due Date Last Done Comments [...] Documents on File Type Date Recorded Patient Senior Patient Account Representative Expl anation Advanced Directive service a je default Advanced Directive service a je default Advanced Directive service a je default Advanced Directive Advanced Directive Advanced Directive Advanced Directive Advanced Directive
--- OUTSIDE RECORDS SUMMARY | 2023-08-14 07:06 | External Medical Summary | Summary of Care ---
Author Name Unknown Organization [place] [address] Care Team Providers Care Him Coder Name Role Phone Pepito Arevalo MD Primary Care Provider [phone] Reason for Visit * Reason Comments Re-Check Medication Administration Flu and/or Pne umo Inj Encounter Details Date Type Department Care Team Description 07/11/2020 Office Visit Internal Medicine [address] [phone] Pepito Arevalo MD [address] [place] [address] Mild persistent asthma without complication*; Need [...] level: Not on file Occupational History Employer: [employer] Social Needs Financial resource strain: Not [...] file Gets together: Not on file Attends confucianism service: Not on file Active member of [...] symptoms or fever? No Have you had Guillain-Udell Syndrome (an illness that causes paralysis) within [...] Visit Internal Medicine Pepito Arevalo MD [address] [place] [address] [place] [address] Health Maintenance Due Date [...] Documents on File Type Date Recorded Patient Composition Instructor Expl anation Advanced Directive service a je default Advanced Directive service a je default Advanced Directive service a je default Advanced Directive Advanced Directive Advanced Directive Advanced Directive Advanced Directive
--- OUTSIDE RECORDS SUMMARY | 2023-08-14 07:06 | External Medical Summary | Summary of Care ---
Author Name Unknown Organization [place] [address] Phone Care Team Providers Care Mental Health Technician Name Role Phone Pepito Arevalo MD Primary Care Provider [phone] Reason for Visit * Reason Comments STATUS CHECK MEDICATION ADMINISTRATION Flu and/or Pne umo Inj Encounter Details Date Type Department Care Team Description 07/11/2018 Office Visit Internal Medicine [address] [address] Pepito Arevalo MD [address] [place] [address] Mild persistent asthma without complication*;Need for [...] symptoms or fever? No Have you had Guillain-Frederick Syndrome (an illness that causes paralysis)? No [...] Office Visit Internal Medicine Pepito Arevalo MD [address] [place] [address] [place] [address] Health Maintenance Due Date [...]
--- OUTSIDE RECORDS SUMMARY | 2023-08-14 07:06 | External Medical Summary | Summary of Care ---
Author Name Unknown Organization [place] [address] Care Team Providers Care Director Payer Name Role Phone Pepito Arevalo MD Primary Care Provider Reason for Visit * Reason Comments Re-Check Medication Administration Flu and/or Pne umo Inj Encounter Details Date Type Department Care Team Description 07/11/2020 Office Visit Internal Medicine [address] [phone] Pepito Arevalo MD [address] [place] [address] Mild persistent asthma without complication*; Need [...] level: Not on file Occupational History Employer: [employer] Social Needs Financial resource strain: Not [...] file Gets together: Not on file Attends temple service: Not on file Active member of [...] symptoms or fever? No Have you had Guillain-[place]roit Syndrome (an illness that causes paralysis) within [...] Office Visit Internal Medicine Pepito Arevalo MD [address] [place] [address] [place] [address] Health Maintenance Due Date [...] Documents on File Type Date Recorded Patient Supervisor Beehive Kiln Expl anation Advanced Directive service a je default Advanced Directive service a je default Advanced Directive service a je default Advanced Directive Advanced Directive Advanced Directive Advanced Directive Advanced Directive
--- OUTSIDE RECORDS SUMMARY | 2023-08-14 07:06 | External Medical Summary | Summary of Care ---
Author Name Unknown Organization [place] [address] Care Team Providers Care Relationship Counselor Name Role Phone Pepito Arevalo MD Primary Care Provider Reason for Visit * Reason Onset Date Comments Health Maintenance 09/30/2021 Encounter Details Date Type Department Care Team Description 09/30/2021 Telephone Family Medicine [address] [phone] Pepito Arevalo MD [address] [place] [address] [place] [address] Health Maintenance Allergies Active Allergy Reactions [...] Office Visit Family Medicine Pepito Arevalo MD [address] [place] [address] [place] [address] Health Maintenance Due Date [...] Documents on File Type Date Recorded Patient Director Consumer Affairs Expl anation Advanced Directive service a je default Advanced Directive service a je default Advanced Directive service a je default Advanced Directive Advanced Directive Advanced Directive Advanced Directive Advanced Directive Advanced Directive Advanced Directive Care Teams Relationship Counselor Relationship Specialty Start Date End Date Pepito Arevalo MD PCP - General 07/05/09 documented as of this encounter
== END 2023-07-28 13:54 ==
LOC: MERGE 09:53 → ED 09:53 → SUATTDRO 16:19 → EDINP 16:19 → INTOOBSV 16:19 → 3W 20:44